=== PATIENT | female | born 1995 | race Caucasian/White ===

== ENCOUNTER 2016-09-13 18:23 | Emergency (ER) | payer MEDICAID ==
--- NOTE | 2016-09-13 20:02 | ERNOTE ---
ER Female HPI Date of Service: 09/13/16 Stated Complaint: 14WEEKS PREG, BLEEDING Presenting Symptoms: vaginal bleeding Time Seen by Provider: 09/13/16 19:37 Source: patient, family, RN notes reviewed Exam Limitations: no limitations Immunizations: IMMUNIZATION HX Immunizations Up to Date Yes History of Influenza Vaccine No Hx Pneumococcal Vaccination No Allergies/Adverse Reactions: Allergies No Known Allergies Allergy (Verified 09/13/16 18:35) Pain Score #1 Pain Score: 0 - History of Present Illness Narrative: 21 y/o female ambulatory to the ED with her family for an episode of vaginal bleeding that occurred just prior to arrival. She reports having spotting that soaked through her underwear and pants. She then put on a pad that has a scant amount of dark brown bleeding present. She is 14 weeks . She denies any pain. Her blood type is A positive. This is her first . Date (Duration): 09/13/16 Time (Timing): 18:00 Activities at Onset: Present: none Associated Symptoms: Present: nausea. Absent: fever/chills, vomiting, abdominal pain, dysuria, urinary frequency, low back pain Review of Systems - Review of Systems Constitutional: Absent: recent illness, fever, chills, malaise EYE: Present: no symptoms reported ENT: Present: no symptoms reported Respiratory: Present: no symptoms reported Cardiology: Present: no symptoms reported Gastrointestinal/Abdominal: Present: nausea. Absent: vomiting, diarrhea, constipation, abdominal pain Genitourinary: Absent: frequency, pain, dysuria Musculoskeletal: Absent: back pain, muscle pain Skin: Present: no symptoms reported Neurological: Absent: headache, dizziness/light-headedness Endocrine: Present: no symptoms reported Hematologic/Lymphatic: Absent: easy bruising, easy bleeding Psych: Present: no symptoms reported - Patient's Past Medical History Patient History - Medical: Obesity Patient History - Cardiac/Respiratory: No pertinent hx Patient History - Cancer: No Hx of Cancer Patient History - Surgical Procedures: No surgical history Patient History - Other: None LMP (females 10-50): LMP (Calendar): 06/19/16 - Social History Living Situations: home Psych History: No pertinent hx Does anyone smoke in the home?: No Smoking Status: Never smoker Have you smoked in the past 12 months: No Do you dip or chew tobacco: No Alcohol Use: none Drug Use: none - Immunizations Immunizations Up to Date: Yes Hx Pneumococcal Vaccination: No History of Influenza Vaccine: No Physical Exam - Physical Exam General Appearance: Present: wd/wn, alert, anxious, obese Neck: Present: normal inspection, nontender, supple Respiratory: Present: no respiratory distress, normal breath sounds, no accessory muscle use, lungs clear Cardiovascular/Chest: Present: regular rate, rhythm, no murmur, normal peripheral pulses Gastrointestinal/Abdominal: Present: normal bowel sounds, nontender, nondistended, soft, other - obese Back Exam: Present: normal inspection, no CVA tenderness Neurological Exam: Present: alert, oriented, normal mood/affect, no motor/ sensory deficits Skin Exam: Present: normal color, warm/dry Pelvic Exam: Present: other - cervical os closed, mucinous discharge streaked with blood present but no active bleeding ED Progress - Vital Signs Patient's Vital Signs:: I have reviewed the patient's vital signs. Vital Signs: Vital Signs 09/13/16 09/13/16 18:31 18:53 Temperature 36.9 C 36.9 C Pulse Rate 80 80 Respiratory 16 16 Rate Blood Pressure 123/76 123/76 O2 Sat by Pulse 99 Oximetry - Progress/Reassessment Chief Complaint: Genitourinary Problem Progress:: Unchanged Plan - Plan Plan: Patient has appt with Dr. Luna tomorrow, to see him as scheduled or return for worsening symptoms as discussed Departure Clinical Impression: Second trimester bleeding - Departure Disposition: Home Follow Up Needed Condition: Stable Instructions: Vaginal Bleeding During , Second Trimester Additional Instructions: Return for bleeding that saturates a pad in an hour or if you pass clots that are lemon sized or larger Nothing in the vagina See Dr. Luna tomorrow as scheduled Referrals: Jacy Luna MD [Staff Physician] -
[2016-09-13 20:12] VITALS: BP 132/80
== END 2016-09-13 20:11 | disposition home or self-care (01) ==
LOC: ER 18:23
DX: N93.8 Other specified abnormal uterine and vaginal bleeding (principal); Z33.1 Pregnant state, incidental; Z3A.14 14 weeks gestation of pregnancy

== ENCOUNTER 2016-10-26 15:41 | Emergency (ER) | payer MEDICAID ==
[2016-10-26 15:54] VITALS: BP 134/84
--- NOTE | 2016-10-26 15:59 | ERNOTE ---
Medical Problem HPI - General Time Seen by Provider: 10/26/16 15:44 Source: patient Exam Limitations: no limitations - Immun/Allergies/Home Medications Immunizations: IMMUNIZATION HX Immunizations Up to Date Yes History of Influenza Vaccine No Hx Pneumococcal Vaccination No Allergies/Adverse Reactions: Allergies azithromycin [From Zithromax Z-Shiva] Allergy (Verified 10/26/16 15:55) Itching Home Medications: HOME MEDICATIONS Vit No.78/Iron/FA [Prenatabs FA Tablet] 1 each PO DAILY 10/26/16 [Last Taken Unknown] - History of Present History Narrative: Patient was working as a when she suddenly saw flashes and the vision went blurry in her right eye. Her vision has improved some but is still blurry. She denies any other symptoms, is currently 20 weeks Date (Duration): 10/26/16 Time (Timing): 15:35 Review of Systems - Review of Systems Constitutional: Absent: fever, chills EYE: Present: see HPI, blurred vision, vision changes. Absent: eye pain, tearing ENT: Absent: ear pain, nose congestion, sore throat Respiratory: Absent: shortness of breath, cough Cardiology: Absent: chest pain Gastrointestinal/Abdominal: Present: other - feels the baby move, no bleeding, no contractions. Absent: nausea, vomiting, abdominal pain Genitourinary: Present: no symptoms reported, frequency - due to Musculoskeletal: Present: no symptoms reported Neurological: Absent: headache, dizziness/light-headedness, weakness, numbness - Patient's Past Medical History Patient History - Medical: Obesity Patient History - Cardiac/Respiratory: No pertinent hx Patient History - Cancer: No Hx of Cancer Patient History - Surgical Procedures: No surgical history Patient History - Other: None LMP (Calendar): 06/19/16 - patient 20 1/ weeks by date - Social History Living Situations: home Psych History: No pertinent hx Does anyone smoke in the home?: No Alcohol Use: none Drug Use: none - Immunizations Immunizations Up to Date: Yes Hx Pneumococcal Vaccination: No History of Influenza Vaccine: No Physical Exam - Physical Exam General Appearance: Present: wd/wn, alert, no apparent distress Eye Exam: Normal inspection: bilateral, PERRL: bilateral, EOMI: bilateral - patient reports double vision with looking to the right Ears, Nose, Throat: Present: normal ENT inspection Respiratory: Present: no respiratory distress, normal breath sounds, no accessory muscle use, lungs clear Cardiovascular/Chest: Present: no murmur Gastrointestinal/Abdominal: Present: normal bowel sounds, nontender, nondistended, soft Neurological Exam: Present: alert, oriented, normal mood/affect, no motor/ sensory deficits, top lift compressor II-XII nml as tested - except for double vision to the right, normal cerebellar test. Absent: facial droop, motor weakness Skin Exam: Present: normal color, warm/dry ED Progress - Vital Signs Patient's Vital Signs:: I have reviewed the patient's vital signs. - Progress/Reassessment Progress Note-Subjective: 10/26/16 16:[address] Paris's office, okay to send patient over now Departure - Departure Clinical Impression: Change in vision Disposition: Home self-care Condition: Good Instructions: Blurred Vision Additional Instructions: go to Dr Cadena office now Referrals: Deven Cadena MD [Staff Physician] -
[2016-10-26] MEDS ORDERED: METOCLOPRAMIDE HCL 5 MG/ML VIAL IV ONE (17:36)
[2016-10-26] MEDS ORDERED: diphenhydrAMINE HCL 50 MG/ML VIAL IV ONE (17:36)
[2016-10-26] MEDS ORDERED: diphenhydrAMINE HCL 50 MG/ML VIAL ONE (17:53)
[2016-10-26] MEDS ORDERED: METOCLOPRAMIDE HCL 5 MG/ML VIAL ONE (17:53)
== END 2016-10-26 18:48 | disposition home or self-care (01) ==
LOC: ER 15:41
DX: O26.892 Other specified pregnancy related conditions, second trimester (principal); R51 Headache; H53.8 Other visual disturbances; Z3A.20 20 weeks gestation of pregnancy

== ENCOUNTER 2016-12-21 13:41 | Emergency (ER) | payer MEDICAID ==
[2016-12-21] MEDS ORDERED: NORMAL SALINE 1,000 ML IV ONE (14:45)
[2016-12-21] MEDS ORDERED: diphenhydrAMINE HCL 50 MG/ML VIAL IV ONE (14:45)
[2016-12-21] MEDS ORDERED: predniSONE 20 MG TABLET PO ONE (14:46)
[2016-12-21] MEDS ORDERED: METOCLOPRAMIDE HCL 5 MG/ML VIAL IV ONE (14:50)
[2016-12-21] MEDS ORDERED: diphenhydrAMINE HCL 50 MG/ML VIAL ONE (14:54)
[2016-12-21] MEDS ORDERED: METOCLOPRAMIDE HCL 5 MG/ML VIAL ONE (14:54)
[2016-12-21 15:01] LABS: Hematocrit 34.5 % (37.0-47.0); Hemoglobin 12.2 gm/dL (12.5-16.0); Mean Cell Volume 85.4 fl (78-100); Mean Corpuscular Hemoglobin 30.2 pg (27-31); Mean Corpuscular Hgb Conc 35.4 g/dl (32-36); Mean Platelet Volume 10.7 fl (6.0-9.5); Neutrophil # 7.1 K/mm3 (1.3-6.0); Neutrophil % 73.3 % (42-75.0); Platelet Count 205 K/mm3 (150-450); Red Blood Count 4.04 M/mm3 (4.2-5.4); Red Cell Distribution Width 12.4 % (11.5-14.0); White Blood Count 9.7 K/mm3 (4.0-10.5)
[2016-12-21 15:14] LABS: Albumin * 2.9 gm/dl (3.4-5.0); BUN/Creatinine Ratio 10.2 (9.0-21.6); Bilirubin, Total 0.3 mg/dL (0.0-1.1); Ca. Corrected For Albumin 9.6 mg/dL (8.4-10.2); Potassium 4.2 mmol/L (3.4-4.6); Total Protein 6.8 gm/dL (6.2-8.2)
[2016-12-21 15:17] LABS: Anion Gap 17.8 mmol/L (6.8-13.8); Carbon Dioxide 21.4 mmol/L (24-32.6)
[2016-12-21 15:38] LABS: Urine Bilirubin Negative (NEGATIVE); Urine Blood Negative /ul (NEGATIVE); Urine Ketone Negative (NEGATIVE); Urine Nitrite Negative (NEGATIVE); Urine Protein Negative (NEGATIVE); Urine Specific Gravity 1.015 SP.GR. (1.005-1.010); Urine Urobilinogen Normal (NORMAL); Urine pH 7.5 pH (5.0-7.0)
[2016-12-21 15:49] LABS: Urine Appearance Slightly Cloudy; Urine Bacteria 3+; Urine Color Yellow; Urine RBC None Seen /hpf (0-5); Urine WBC 0-5 /hpf (0-5)
[2016-12-21 17:28] VITALS: BP 127/74
--- NOTE | 2016-12-21 18:03 | ERNOTE ---
Integumentary HPI - Narrative Date of Service: 12/21/16 - General Presenting Symptoms: other - vomiting, abdominal cramps, itching, rash Time Seen by Provider: 12/21/16 14:10 Source: patient Exam Limitations: no limitations - Immun/Allergies/Home Medications Immunizations: IMMUNIZATION HX Immunizations Up to Date Yes History of Influenza Vaccine No Hx Pneumococcal Vaccination No Allergies/Adverse Reactions: Allergies Allergy/AdvReac Type Severity Reaction Status Date / Time azithromycin Allergy Itching Verified 12/21/16 13:51 [From Zithromax Z-Shiva] Home Medications: HOME MEDICATIONS Vit No.78/Iron/FA [Prenatabs FA Tablet] 1 each PO DAILY 10/26/16 [Last Taken Unknown] Cefuroxime Axetil [Ceftin] 250 mg PO Q12H #20 tab 12/21/16 [Last Taken Unknown] EPINEPHrine [Epipen] 0.3 mg IJ ONCE #1 auto.injct 12/21/16 [Last Taken Unknown] Metoclopramide HCl [Reglan] 10 mg PO QID PRN #12 tab 12/21/16 [Last Taken Unknown] diphenhydrAMINE HCL [Benadryl] 25 mg PO Q6H PRN #30 cap 12/21/16 [Last Taken Unknown] - History of Present Illness Narrative: Patient presents for evaluation of low abdominal cramping, vomiting and pruritic rash. She relates that last night she developed low abdominal cramps, vomited 4-5 times. She also last night developed itching rash on face, back and arms after vomiting. no fever or [place]. No vaginal bleeding. No diarrhea. She is 28 weeks . She called OB and was directed to the ED. No trouble breathing or swallowing. No new exposures. Quality: Reports: itching Exposure: Reports: no cause identified Modifying Factors - (Improves): Denies: antihistamine Modifying Factors - (Worsens): Reports: nothing Associated Symptoms: Denies: blisters, rash, petechiae, change in skin texture, sore throat Prior Treatment: Denies: recently seen Review of Systems - Review of Systems Constitutional: Absent: fever ENT: Absent: throat swelling Respiratory: Absent: shortness of breath Cardiology: Absent: chest pain Gastrointestinal/Abdominal: Present: abdominal pain Genitourinary: Absent: dysuria Skin: Present: See HPI Neurological: Absent: weakness - Patient's Past Medical History Patient History - Medical: Obesity Patient History - Cardiac/Respiratory: No pertinent hx Patient History - Cancer: No Hx of Cancer Patient History - Surgical Procedures: No surgical history Patient History - Other: None LMP (Calendar): 06/19/16 - patient 20 1/ weeks by date - Social History Living Situations: home Psych History: No pertinent hx Does anyone smoke in the home?: No Smoking Status: Former smoker Alcohol Use: none Drug Use: none - Immunizations Immunizations Up to Date: Yes Hx Pneumococcal Vaccination: No History of Influenza Vaccine: No Physical Exam - Physical Exam General Appearance: Present: alert, no apparent distress Eye Exam: Normal inspection: bilateral, PERRL: bilateral Ears, Nose, Throat: Present: normal ENT inspection, other - There is no swelling of the lips, tongue or posterior oropharyngeal structures.. Absent: pharyngeal erythema, pharyngeal swelling, tonsillar swelling, dry mucous membranes Neck: Present: normal inspection, supple Respiratory: Present: no respiratory distress, normal breath sounds, no accessory muscle use, lungs clear Cardiovascular/Chest: Present: regular rate, rhythm, normal peripheral pulses Gastrointestinal/Abdominal: Present: normal bowel sounds, soft, other - Mild suprapubic low abdominal tenderness. no peritoneal signs. no guarding or rebound. Back Exam: Absent: CVA tenderness (R), CVA tenderness (L) Extremity Exam: Present: normal inspection. Absent: calf tenderness Neurological Exam: Present: alert, normal mood/affect, no motor/sensory deficits Skin Exam: Present: other - there are some small scattered urticarial appearing areas on the face and a few on the back. Scattered urticarial areas noted. no SJS, TEN or EM. no petechiae. ED Progress - Results and Orders Patient's Lab Results:: I have reviewed the patient's lab results. - Vital Signs Patient's Vital Signs:: I have reviewed the patient's vital signs. Vital Signs: Vital Signs 12/21/16 12/21/16 12/21/16 13:47 14:18 14:43 Temperature 36.7 C 36.5 C 36.6 C Pulse Rate 96 98 98 Respiratory 12 20 18 Rate Blood Pressure 130/81 134/93 142/80 O2 Sat by Pulse 98 96 98 Oximetry 12/21/16 12/21/16 12/21/16 14:48 15:11 15:43 Temperature 36.6 C 36.6 C 36.3 C L Pulse Rate 98 91 84 Respiratory 18 18 15 Rate Blood Pressure 142/80 129/93 O2 Sat by Pulse 98 98 97 Oximetry 12/21/16 12/21/16 12/21/16 16:48 17:04 17:18 Temperature 36.4 C L 36.3 C L Pulse Rate 88 80 81 Respiratory 16 18 18 Rate Blood Pressure 103/54 O2 Sat by Pulse 99 100 99 Oximetry 12/21/16 17:27 Temperature 36.5 C Pulse Rate 96 Respiratory 15 Rate Blood Pressure 127/74 O2 Sat by Pulse 97 Oximetry - Progress/Reassessment Chief Complaint: Rash Progress Note-Subjective: 12/21/16 17:58 I initially felt the patient should be sent to OB. This was D/W Dr Luna and he requested the patient stay in the ED. He recommended only one dose of steroid but was OK with benadryl. Her itching resolved after Benadryl. She had no further vom iting and her abdominal cramps resolved. Her abdomen was non- tender. She was seen by OB and cleared from an OB standpoint. She has bactiuria and esterase so I will cover with ABx pending culture. She is wishing to go home. No suggestion of life threat at this point. I discussed warning signs and reasons to return as well as the need for close f/u. Departure Clinical Impression: Vomiting, Abdominal cramps, Asymptomatic bacteriuria, Chronic pruritic rash in adult - Departure Disposition: Home self-care Condition: Stable Instructions: Asymptomatic Bacteriuria, Female Additional Instructions: Rest. FLuids. You need to be re-checked by your doctor within 48 hours. Return here for fever, increased rash, trouble breathing or swallowing, abdominal pain, vaginal bleeding or if your condition worsens or changes in any way. I have provided you an EpiPen to take for severe allergic symptoms of lip swelling, trouble breathing or swallowing. If you take this you need to call 911. Referrals: Jacy Luna MD [Primary Care Provider] - Prescriptions: Cefuroxime Axetil [Ceftin] 250 mg PO Q12H #20 tab EPINEPHrine [Epipen] 0.3 mg IJ ONCE #1 auto.injct Metoclopramide HCl [Reglan] 10 mg PO QID PRN #12 tab PRN Reason: Vomiting diphenhydrAMINE HCL [Benadryl] 25 mg PO Q6H PRN #30 cap PRN Reason: Itching
== END 2016-12-21 18:15 | disposition home or self-care (01) ==
LOC: ER 13:41
DX: R11.10 Vomiting, unspecified (principal); R10.9 Unspecified abdominal pain; R82.71 Bacteriuria; L29.9 Pruritus, unspecified; Z33.1 Pregnant state, incidental; Z3A.20 20 weeks gestation of pregnancy

== ENCOUNTER 2016-12-27 03:30 | Emergency (ER) | payer MEDICAID ==
[2016-12-27 03:53] LABS: Urine Bilirubin Negative (NEGATIVE); Urine Blood Negative /ul (NEGATIVE); Urine Ketone Negative (NEGATIVE); Urine Nitrite Negative (NEGATIVE); Urine Protein Negative (NEGATIVE); Urine Urobilinogen Normal (NORMAL); Urine pH 6.5 pH (5.0-7.0)
[2016-12-27 04:05] LABS: Urine Amorphous Sediment Few - 1+ (NONE-FEW); Urine Appearance Clear; Urine Bacteria 1+; Urine Color Yellow; Urine RBC None Seen /hpf (0-5); Urine WBC None Seen /hpf (0-5)
[2016-12-27 04:35] VITALS: BP 120/66
--- NOTE | 2016-12-27 04:36 | ERNOTE ---
ER Female HPI Date of Service: 12/27/16 Stated Complaint: 29 WEEKS, "BURNING CROTCH" Time Seen by Provider: 12/27/16 04:06 Source: patient, family - C/O BURNING IN HER CROTCH. IS 29 WEEKS . SHE WAS SEEN ON 21 DECEMBER AND NOTED TO HAVE BACTERIA IN URINE AND WAS PRESCRIBED CEFTIN FOR UTI. THE URINE CULTURE WAS NEGATIVE FOR ANY GROWTH. Immunizations: IMMUNIZATION HX Immunizations Up to Date Yes History of Influenza Vaccine No Hx Pneumococcal Vaccination No Allergies/Adverse Reactions: Allergies azithromycin [From Zithromax Z-Shiva] Allergy (Verified 12/21/16 13:51) Itching Home Medications: HOME MEDICATIONS Vit No.78/Iron/FA [Prenatabs FA Tablet] 1 each PO DAILY 10/26/16 [Last Taken Unknown] Cefuroxime Axetil [Ceftin] 250 mg PO Q12H #20 tab 12/21/16 [Last Taken Unknown] EPINEPHrine [Epipen] 0.3 mg IJ ONCE #1 auto.injct 12/21/16 [Last Taken Unknown] Metoclopramide HCl [Reglan] 10 mg PO QID PRN #12 tab 12/21/16 [Last Taken Unknown] diphenhydrAMINE HCL [Benadryl] 25 mg PO Q6H PRN #30 cap 12/21/16 [Last Taken Unknown] Miconazole Nitrate [Monistat-7 Vaginal] 1 appl VG HS #7 tube 12/27/16 [Last Taken Unknown] - History of Present Illness Narrative: PT WAS SEEN HERE ON FOR A DIFFERENT PROBLEM BUT NOTED ON HER URINE TO HAVE BACTERIA. SHE WAS STARTED ON CEFTIN AND TOLD TO F/U WITH HER OB DR SINCE SHE IS 29 WEEKS . WHEN SHE SAW DR LUNA ON Tuesday SHE WAS TOLD TO KEEP TAKING THE CEFTIN BUT IT WAS LATER THAT DAY THAT SHE NOTED A WHITISH DISCHARGE AND THE "BURNING FEELING" IN HER CROTCH. THIS HAS WORSENED OVER THE PAST TWO - THREE DAYS. SHE IS STILL TAKING THE ANTIBIOTIC THOUGH WHEN I CHECKED HER URINE CULTURE RESULTS IT SHOWS NO GROWTH. Review of Systems - Review of Systems Constitutional: Present: See HPI EYE: Present: no symptoms reported ENT: Present: no symptoms reported Respiratory: Present: no symptoms reported Cardiology: Present: no symptoms reported Gastrointestinal/Abdominal: Present: no symptoms reported Genitourinary: Present: See HPI Musculoskeletal: Present: no symptoms reported Skin: Present: no symptoms reported Neurological: Present: no symptoms reported Endocrine: Present: no symptoms reported Hematologic/Lymphatic: Present: no symptoms reported Psych: Present: no symptoms reported All Other Systems: All systems neg except as marked - Patient's Past Medical History Patient History - Medical: Obesity Patient History - Cardiac/Respiratory: No pertinent hx Patient History - Cancer: No Hx of Cancer Patient History - Surgical Procedures: No surgical history Patient History - Other: None LMP (Calendar): 06/19/16 - patient 20 07/17 weeks by date - Social History Living Situations: spouse Abuse History: No History of abuse Psych History: No pertinent hx Does anyone smoke in the home?: No Smoking Status: Never smoker Have you smoked in the past 12 months: No Do you dip or chew tobacco: No Alcohol Use: none Drug Use: none - Immunizations Immunizations Up to Date: Yes Hx Pneumococcal Vaccination: No History of Influenza Vaccine: No Physical Exam - Physical Exam General Appearance: Present: wd/wn, alert, no apparent distress Respiratory: Present: no respiratory distress, normal breath sounds, no accessory muscle use, chest nontender, lungs clear Cardiovascular/Chest: Present: regular rate, rhythm, no murmur, normal peripheral pulses Back Exam: Present: no CVA tenderness Neurological Exam: Present: alert, oriented ED Progress - Results and Orders Patient's Lab Results:: I have reviewed the patient's lab results. - Vital Signs Patient's Vital Signs:: I have reviewed the patient's vital signs. Vital Signs: Vital Signs 12/27/16 03:34 Temperature 36.6 C Pulse Rate 84 Respiratory 16 Rate Blood Pressure 126/68 O2 Sat by Pulse 99 Oximetry - Progress/Reassessment Chief Complaint: Genitourinary Problem Departure Clinical Impression: Yeast infection involving the vagina and surrounding area - Departure Disposition: Home Follow Up Needed Condition: Good Instructions: Vaginal Yeast Infection, Adult Additional Instructions: STOP THE CEFTIN YOUR URINE FROM THE DID NOT GROW OUT ANY BACTERIA. Referrals: Jacy Luna MD [Primary Care Provider] - Prescriptions: Miconazole Nitrate [Monistat-7 Vaginal] 1 appl VG HS #7 tube
== END 2016-12-27 04:33 | disposition home or self-care (01) ==
LOC: ER 03:30
DX: O98.812 Other maternal infectious and parasitic diseases complicating pregnancy, second trimester (principal); Z3A.20 20 weeks gestation of pregnancy

== ENCOUNTER 2017-03-01 10:10 | Inpatient (IN) | payer MEDICAID ==
[2017-03-01] MEDS ORDERED: DEXTROSE 5%-LACTATED RINGERS 1,000 ML IV PRN (10:30)
[2017-03-01] MEDS ORDERED: LIDOCAINE HCL 50 ML VIAL PERI PRN (10:30)
[2017-03-01] MEDS ORDERED: RINGER'S SOLUTION,LACTATED 1,000 ML IV ONE (10:30)
[2017-03-01] MEDS ORDERED: MISOPROSTOL 100 MCG TABLET VG PRN (10:30)
[2017-03-01 11:13] LABS: Hematocrit 34.9 % (37.0-47.0); Hemoglobin 12.2 gm/dL (12.5-16.0); Mean Cell Volume 84.7 fl (78-100); Mean Corpuscular Hemoglobin 29.6 pg (27-31); Mean Platelet Volume 12.3 fl (6.0-9.5); Neutrophil # 6.5 K/mm3 (1.3-6.0); Neutrophil % 71.2 % (42-75.0); Platelet Count 166 K/mm3 (150-450); Red Blood Count 4.12 M/mm3 (4.2-5.4); White Blood Count 9.1 K/mm3 (4.0-10.5)
[2017-03-01] MEDS: RINGER'S SOLUTION,LACTATED 1,000 ML IV PRN (11:21)
[2017-03-01 11:28] LABS: Albumin * 2.5 gm/dl (3.4-5.0); Anion Gap 15.9 mmol/L (6.8-13.8); BUN/Creatinine Ratio 17.8 (9.0-21.6); Bilirubin, Total 0.3 mg/dL (0.0-1.1); Ca. Corrected For Albumin 9.5 mg/dL (8.4-10.2); Calcium * 8.6 mg/dL (7.9-10.9); Carbon Dioxide 20.1 mmol/L (24-32.6); Total Protein 6.3 gm/dL (6.2-8.2)
[2017-03-01] MEDS ORDERED: BUTORPHANOL TARTRATE 2 MG/ML VIAL IV ONE (14:27)
--- NOTE | 2017-03-01 18:34 | PN ---
Subjective - Date and Time Seen Date: 03/01/17 Subjective Narrative: labor note patient seen and evaluated. 21 yo, G1 at 38.1 w with mild preeclampsia. GBS negative. cervix dilated to 2 cm, 80% and -3 at admission. had headache at admission, now resolved. complains of right lower back pain at this time. BP labile, a few in the severe range, mostly at mild range and upper normal. face, hand, abdomen and lower extremities appeared swollen at admission. 2+ edema in lower extremities. IV fluid at 50 ml/h due to significant edema. Urine output day shift: 900 ml so far. cytotec placed at 11:18 contractions at time were every minute and now spaced out. received stadol 2 mg iv at 14:27 Cervix: 2 cm, 80% and -2 (17:40) FHR: reassuring 135s with accels. [place]: irregular contractions. DTR: 2+ bilateral knee. Plan: continue monitoring. 2nd of cytotec if tolerated. Pitocin if unable to tolerate cytotec. epidural if in active labor. magnesium sulphate for severe BP or persistent headache not relieved by medication. Jacy Luna MD Objective - Vitals Vitals: Last Vital Signs Temp 36.2 C L 02/07/17 21:50 Pulse Resp BP 143/88 02/07/17 21:50 Pulse Ox - Abnormal Lab Findings Abnormal Lab Findings: Abnormal Lab Results 03/01/17 03/01/17 Range/Units 11:05 11:05 RBC 4.12 L (4.2-5.4) M/mm3 Hgb 12.2 L (12.5-16.0) gm/dL Hct 34.9 L (37.0-47.0) % MPV 12.3 H (6.0-9.5) fl Immature Gran # (Auto) 0.04 H (0.000-0.0310) K/mm3 Neutrophils # 6.5 H (1.3-6.0) K/mm3 Chloride 107 H (97-106) mmol/L Carbon Dioxide 20.1 L (24-32.6) mmol/L Anion Gap 15.9 H (6.8-13.8) mmol/L Est GFR (Non-Af Amer) 185 H D (60-130) mL/min ALT 15 L (19-67) U/L Albumin 2.5 L (3.4-5.0) gm/dl
[2017-03-01] MEDS ORDERED: OXYTOCIN/DEXTROSE 5%-WATER 30 UNITS/500 ML BAG IV ONE (20:41)
[2017-03-01] MEDS ORDERED: ONDANSETRON HCL/PF 2 MG/ML VIAL IV PRN (21:47)
[2017-03-01] MEDS ORDERED: NALOXONE HCL 1 MG/1 ML SYRG IV PRN (21:47)
[2017-03-01] MEDS ORDERED: fentaNYL CITRATE/PF 50 MCG/ML AMPUL IT SCH (22:00)
--- NOTE | 2017-03-01 22:10 | OR ---
Anesthesia Pre Procedure Eval Date of Service: 03/01/17 Pre Procedure Evaluation: Last Vital Signs Temp 36.2 C L 02/07/17 21:50 Pulse Resp BP 143/88 02/07/17 21:50 Pulse Ox Anesthesia Pre Procedure Evaluation Heart Rate: 64 Blood Pressure: 166/102 Temperature: 36.6 Respiratory Rate: 20 SaO2: 98 DATE: 03/01/2017 TIME: 5 INDICATIONS: Active labor, labor pain PAST MEDICAL HISTORY: [place] patient and I labor requesting labor analgesia History of GERD: No History of smoking: No History of sleep apnea: No EXAM: Heart regular; lungs clear ASSESSMENT OF MEDICAL STATUS: Appropriate candidate for labor analgesia PLANNED PROCEDURE: Combination spinal epidural for labor analgesia Home Medications: HOME MEDICATIONS EPINEPHrine [Epipen] 0.3 mg IJ ONCE #1 auto.injct 12/21/16 [Last Taken Unknown] Vits96/Iron Fum/Folic [ S] 1 tab PO DAILY 03/01/17 [Last Taken Unknown]
--- NOTE | 2017-03-01 22:35 | OR ---
Anesthesia Procedure Note - Anesthesia Procedure Note Date of Service: 03/01/17 Narrative: Vital Signs - Last Taken Temp 36.2 C L 02/07/17 21:50 Pulse Resp BP 143/88 02/07/17 21:50 Pulse Ox ANESTHESIA PROCEDURE NOTE Date of Procedure: 03/01/2017 Time of procedure: 2204. Performed by: DOMINIQUE Mathews CRNA, MSN [place] Guide: Samuel Preciado RN. Preprocedure diagnosis: Active labor, labor pain. Post procedure diagnosis: Same. Procedure:Epidural for labor analgesia L3 4. Indications: Labor pain. Findings: See below. Details of the procedure: The patient was placed on the side of the bed in sitting positionand prepped with DuraPrep then draped in a sterile fashion. Lidocaine 1% was infiltrated to the skin and subcutaneous tissues at the level of the L3 4 interspace. An 18-gauge Touhy needle was used to approach the epidural space with loss of resistance technique. Once loss of resistance was achieved a 24-gauge Pencan needle was passed through the epidural needle and CSF was contacted. After CSF returned fentanyl 20 mcg of fentanyl was injected in the spinal needle was removed the epidural catheter was then threaded approximately 4 cm in the epidural needle was removed. The catheter was taped in place and after careful aspiration 3 mL of 1.5% lidocaine with 1-200,000 epinephrine was injected without change in maternal heart rate or sensorium. . EBL: Minimal. Fluids: N/A. Specimen: N/A. Post procedure condition: The patient tolerated the procedure well with good relief. No complications were noted. Thank you for this consultation. Deven To CRNA, DOMINIQUE, MSN
[2017-03-01] MEDS: BUPIVACAINE HCL/0.9 % NACL/PF 250 ML EP PRN (22:57)
[2017-03-02] MEDS ORDERED: LABETALOL HCL 200 MG TABLET PO STA (06:34)
--- NOTE | 2017-03-02 08:57 | PN ---
Subjective - Date and Time Seen Date: 03/02/17 Subjective Narrative: labor note induction day 2 G1, 38 2/7 weeks induced for preeclampsia. BP labile, with several in the severe range 173/107, 170/102. denies headache. labetalol 200 mg po given at 6:30. BP trending down and now some in the normal range 147/91 and 123/70. received epidural around 11 pm last night. complains of legs tingling after epidural, more on the right side. pitocin at 13 mu/min. contractions q4-5 min. Cervix 2/80/-3 Ortiz bulb balloon placed into the cervix to aid with pitocin, but slided out after inflating with saline. Cervix now 4 cm, 80% and -2. Patient appeared having SROM, with pooling fluid on cervical exam, no bulging bag, just the scalp felt. FHR: reassuring, 125s with accels. Plan: continue pitocin as tolerated. will notify anesthesia for complain of legs tingling. Jacy Luna MD Objective - Vitals Vitals: Last Vital Signs Temp 36.2 C L 03/01/17 22:40 Pulse 84 03/02/17 06:42 Resp 16 03/01/17 22:40 BP 172/97 03/02/17 06:42 Pulse Ox 98 03/01/17 22:40 - Abnormal Lab Findings Abnormal Lab Findings: Abnormal Lab Results 03/01/17 03/01/17 Range/Units 11:05 11:05 RBC 4.12 L (4.2-5.4) M/mm3 Hgb 12.2 L (12.5-16.0) gm/dL Hct 34.9 L (37.0-47.0) % MPV 12.3 H (6.0-9.5) fl Immature Gran # (Auto) 0.04 H (0.000-0.0310) K/mm3 Neutrophils # 6.5 H (1.3-6.0) K/mm3 Chloride 107 H (97-106) mmol/L Carbon Dioxide 20.1 L (24-32.6) mmol/L Anion Gap 15.9 H (6.8-13.8) mmol/L Est GFR (Non-Af Amer) 185 H D (60-130) mL/min ALT 15 L (19-67) U/L Albumin 2.5 L (3.4-5.0) gm/dl [facility] Physician Documentation - Urinary Catheter Management Urethral (Ortiz) Date of Insertion: 03/01/17 Time of Insertion: 23:00
[2017-03-02] MEDS: RINGER'S SOLUTION,LACTATED 1,000 ML IV PRN (15:22)
[2017-03-02] MEDS ORDERED: LABETALOL HCL 200 MG TABLET PO ONE (17:30)
[2017-03-02] MEDS: BUPIVACAINE HCL/0.9 % NACL/PF 250 ML EP PRN (18:10)
[2017-03-02] MEDS ORDERED: SENNOSIDES 8.6 MG TABLET PO PRN (22:47)
[2017-03-02] MEDS ORDERED: HYDROCORTISONE 30 APPL TUBE TP PRN (22:47)
[2017-03-02] MEDS ORDERED: BISACODYL 10 MG SUPP.RECT RC PRN (22:47)
[2017-03-02] MEDS ORDERED: GLYCERIN/WITCH HAZEL LEAF 40 APPL BOX TP PRN (22:47)
[2017-03-02] MEDS ORDERED: OXYTOCIN/DEXTROSE 5%-WATER 30 UNITS/500 ML BAG IV ONE (22:47)
[2017-03-02] MEDS ORDERED: BENZOCAINE/MENTHOL 81 SPRAY CAN TP PRN (22:47)
[2017-03-02] MEDS ORDERED: oxyCODONE HCL/ACETAMINOPHEN 1 TAB TABLET PO PRN (22:47)
[2017-03-02] MEDS ORDERED: ceFAZolin SODIUM 3 GM in DEXTROSE 5 % IN WATER 100 ML IV ONE ×2 (23:02)
--- NOTE | 2017-03-02 23:02 | OR ---
Operative Report - Dictated Report Narrative: Spontaneous Vaginal Delivery Note: 21 yo, CF, G1 at 38.2 week, admitted with mild preeclampsia and induced with cytotec x 1 dose and pitocin. GBS was negative. Received epidural in labor. AROM at 6 cm with clear fluid. IUPC and ISE placed. Progressed to complete and pushed for about 1.5 hours. Head delivered in LULA over the perineum. No nuchal cord noted. The anterior shoulder delivered, followed by the posterior shoulder and the rest of the baby without difficulty. Baby was not crying at perineum. Cord was clamped, and cut by father of baby. Mouth and nose were bulb- suctioned. Baby placed on maternal abdomen for drying and then transferred to warmer for care by the nursing. Cord blood was obtained. Placenta delivered by manual extraction after cord partially torn and was intact with 3 vessel cord. Pitocin drip started after placenta delivered. Exam of the perineum, vaginal and cervix revealed no perineum laceration. Fundus was massaged and firm. Bleeding was minimal. Mother and baby tolerated the delivery well. EBL 250 ml. Infant: male, 3589 grams, 7 lbs and 14.6 oz. 7/9. Time of delivery: 22: 07. Time of placenta delivery: 22:33. Jacy Luna MD History for Definition: * The number of deliveries resulting in a live the patient experienced prior to current hospitalization * The previous delivery of live twins or any live multiple gestation is considered one live event. *If primagravida or nulliparous is documented select zero for the number of previous live births. Live Events: 0
[2017-03-03] MEDS: IBUPROFEN 800 MG TABLET PO PRN ×3 (00:07→17:17)
[2017-03-03 09:12] LABS: Hemoglobin 11.1 gm/dL (12.5-16.0); Mean Cell Volume 85.3 fl (78-100); Mean Corpuscular Hemoglobin 29.6 pg (27-31); Mean Corpuscular Hgb Conc 34.7 g/dl (32-36); Mean Platelet Volume 12.4 fl (6.0-9.5); Neutrophil # 15.7 K/mm3 (1.3-6.0); Neutrophil % 80.2 % (42-75.0); Platelet Count 166 K/mm3 (150-450); Red Blood Count 3.75 M/mm3 (4.2-5.4); Red Cell Distribution Width 13.2 % (11.5-14.0); White Blood Count 19.5 K/mm3 (4.0-10.5)
[2017-03-03 09:25] LABS: Albumin * 2.4 gm/dl (3.4-5.0); Anion Gap 16.2 mmol/L (6.8-13.8); BUN/Creatinine Ratio 12.7 (9.0-21.6); Bilirubin, Total 0.3 mg/dL (0.0-1.1); Ca. Corrected For Albumin 9.5 mg/dL (8.4-10.2); Calcium * 8.5 mg/dL (7.9-10.9); Carbon Dioxide 18.7 mmol/L (24-32.6); Potassium 3.9 mmol/L (3.4-4.6); Total Protein 5.7 gm/dL (6.2-8.2)
[2017-03-03] MEDS: DOCUSATE SODIUM 100 MG CAPSULE PO SCH ×2 (10:04→20:52)
[2017-03-03] MEDS: oxyCODONE HCL/ACETAMINOPHEN 1 TAB TABLET PO PRN ×3 (11:42→23:02)
[2017-03-03] MEDS ORDERED: MAGNESIUM SULFATE IN WATER 50 ML, MAGNESIUM SULFATE IN WATER 50 ML IV ONE ×2 (15:22)
--- NOTE | 2017-03-03 15:22 | PN ---
Subjective - Date and Time Seen Date: 03/03/17 Subjective Narrative: day 1, s/p and manual removal of placenta. Afebrile. BP labile, mostly in the mild range, but some severe range. denies headache, blurry vision or RUQ pain. swelling in legs improved. ambulating well. breast feeding. normal lochia. Objective - Vitals Vitals: Last Vital Signs Temp 36.5 C 03/03/17 14:24 Pulse 77 03/03/17 14:24 Resp 18 03/03/17 14:24 BP 165/100 03/03/17 14:24 Pulse Ox 98 03/03/17 14:24 - Abnormal Lab Findings Abnormal Lab Findings: Abnormal Lab Results 03/03/17 03/03/17 Range/Units 09:00 09:00 WBC 19.5 H D (4.0-10.5) K/mm3 RBC 3.75 L (4.2-5.4) M/mm3 Hgb 11.1 L (12.5-16.0) gm/dL Hct 32.0 L (37.0-47.0) % MPV 12.4 H (6.0-9.5) fl Immature Gran % (Auto) 0.50 H (0.001-0.429) % Immature Gran # (Auto) 0.09 H (0.000-0.0310) K/mm3 Neutrophils % 80.2 H (42-75.0) % Lymphocytes % 10.9 L (20-51) % Neutrophils # 15.7 H (1.3-6.0) K/mm3 Monocytes # 1.6 H (0.0-1.0) k/mm3 Chloride 108 H (97-106) mmol/L Carbon Dioxide 18.7 L (24-32.6) mmol/L Anion Gap 16.2 H (6.8-13.8) mmol/L Random Glucose 120 H D (70-110) mg/dL ALT 14 L (19-67) U/L Total Protein 5.7 L (6.2-8.2) gm/dL Albumin 2.4 L (3.4-5.0) gm/dl - Exam Constitutional: Present: Alert, Oriented x3, Cooperative Respiratory: Present: no respiratory distress Cardiovascular/Chest: Present: normal peripheral pulses Abdomen: Present: soft, nontender, nondistended, other - fundus firm at umbilicus. No uterine tenderness. Extremity: Present: normal range of motion, no calf tenderness, lower extremity edema - 1+ bilaterally., pedal edema Skin Exam: Present: normal color, warm/dry, no cyanosis Neurologic: Present: other - DTR 2+ bilaterally. Eye contact: Present: cooperative, good eye contact, normal speech Cauti Physician Documentation - Urinary Catheter Management Urethral (Ortiz) Date of Insertion: 03/02/17 Time of Insertion: 10:45 Date of Removal: 03/02/17 Time of Removal: 18:20 Assessment/Plan Plan Narrative: A: day 1, s/p , induced for mild preeclampsia and now severe. Plan: will start magnesium sulphate for severe prophylaxis. will watch the Is and Os and magnesium toxicity. seizure precautions. Jacy Luna MD
[2017-03-03] MEDS ORDERED: MAGNESIUM SULFATE IN WATER 1,000 ML IV SCH (15:30)
[2017-03-04] MEDS: IBUPROFEN 800 MG TABLET PO PRN (02:22)
[2017-03-04] MEDS: oxyCODONE HCL/ACETAMINOPHEN 1 TAB TABLET PO PRN ×2 (02:22→08:04)
[2017-03-04] MEDS: DOCUSATE SODIUM 100 MG CAPSULE PO SCH (08:04)
--- NOTE | 2017-03-04 09:43 | PN ---
Subjective - Date and Time Seen Date: 03/04/17 Subjective Narrative: day 2, s/p with preeclampsia. denies headache, blurry vision, RUQ pain. BP has been labile, some in severe range and mostly mild. declined magnesium sulphate yesterday. states edema has been improving. breast feeding. normal lochia. ambulation well. discussed possible discharge home if BP mild and without symptoms. Objective - Vitals Vitals: Last Vital Signs Temp 36.8 C 03/04/17 07:10 Pulse 77 03/04/17 07:10 Resp 20 03/04/17 07:10 BP 148/92 03/04/17 07:10 Pulse Ox 100 03/04/17 07:10 - Exam Constitutional: Present: Alert, Oriented x3, Cooperative Respiratory: Present: no respiratory distress Cardiovascular/Chest: Present: normal peripheral pulses Abdomen: Present: soft, nontender, nondistended, other - fundus firm, non- tender and 1 finger below umbilicus. Extremity: Present: normal range of motion, no calf tenderness, lower extremity edema - trace, pedal edema - trace Skin Exam: Present: normal color, warm/dry, no cyanosis Neurologic: Present: other - DTR: normal Eye contact: Present: cooperative, good eye contact, normal speech Cauti Physician Documentation - Urinary Catheter Management Urethral (Ortiz) Date of Insertion: 03/02/17 Time of Insertion: 10:45 Date of Removal: 03/02/17 Time of Removal: 18:20 Assessment/Plan Plan Narrative: A: day 2, s/p with preeclampsia and asymptomatic. Plan: preeclampsia was mild at admission and became severe due to elevated BP in the severe range in labor and . BP has been very labile either due to pain or anxiety. BP was severely elevated yesterday, but patient declined magnesium sulphate. BP currently in the mild range. No headache or blurry vision. OK to discharge if stable and mild BP only. Counseled possible magnesium sulphate for severe BP or neurologic symptoms. Precautions given. Patient will check BP at home and call if over 160/100. Jacy Luna MD
[2017-03-04 11:39] VITALS: BP 162/85
== END 2017-03-04 16:00 | disposition home or self-care (01) | DRG 775 ==
LOC: OB 10:10 → MS 03-03 20:38
PROVIDERS: ADMIT Obstetrics & Gynecology; ATTEND Obstetrics & Gynecology
PROC: 10E0XZZ Delivery of Products of Conception, External Approach (ICD-10-PCS; principal; 2017-03-02)
PROC: 10907ZC Drainage of Amniotic Fluid, Therapeutic from Products of Conception, Via Natural or Artificial Opening (ICD-10-PCS; 2017-03-02)
PROC: 4A1H7CZ Monitoring of Products of Conception, Cardiac Rate, Via Natural or Artificial Opening (ICD-10-PCS; 2017-03-02)
PROC: 00HU33Z Insertion of Infusion Device into Spinal Canal, Percutaneous Approach (ICD-10-PCS; 2017-03-02)
DX: O14.14 Severe pre-eclampsia complicating childbirth (principal); Z68.41 Body mass index [BMI] 40.0-44.9, adult; O99.214 Obesity complicating childbirth; E66.01 Morbid (severe) obesity due to excess calories; Z3A.38 38 weeks gestation of pregnancy; Z37.0 Single live birth

== ENCOUNTER 2017-03-24 03:38 | Emergency (ER) | payer MEDICAID ==
[2017-03-24 03:49] VITALS: BP 146/99
--- NOTE | 2017-03-24 05:36 | ERNOTE ---
Abdominal HPI - General Chief Complaint: Abdominal Pain Time Seen by Provider: 03/24/17 05:21 - Immun/Allergies/Home Medications Immunizatons: IMMUNIZATION HX Immunizations Up to Date Yes History of Influenza Vaccine Yes Hx Pneumococcal Vaccination No Allergies/Adverse Reactions: Allergies azithromycin [From Zithromax Z-Shiva] Allergy (Verified 03/24/17 03:49) Itching Home Medications: HOME MEDICATIONS EPINEPHrine [Epipen] 0.3 mg IJ ONCE #1 auto.injct 12/21/16 [Last Taken Unknown] Vits96/Iron Fum/Folic [ S] 1 tab PO DAILY 03/01/17 [Last Taken Unknown] Ibuprofen [Motrin] 800 mg PO Q6H PRN tablet 03/04/17 [Last Taken Unknown] - History of Present Illness Narrative: Pt was awakened by RUQ abd pain in the middle of the night. She had vaginal delivery 3 weeks ago Timing: constant, getting worse Quality: moderate Activities at Onset: sleep - Last night Modifying Factors - (Improves): Present: analgesics - ibuprofen Associated Symptoms: Present: nausea, vomiting Review of Systems - Review of Systems Constitutional: Absent: recent illness EYE: Present: no symptoms reported ENT: Present: no symptoms reported Respiratory: Absent: shortness of breath Cardiology: Absent: chest pain Gastrointestinal/Abdominal: Present: nausea, constipation. Absent: vomiting Genitourinary: Present: no symptoms reported Musculoskeletal: Present: back pain Skin: Present: no symptoms reported Neurological: Present: no symptoms reported Endocrine: Present: no symptoms reported Hematologic/Lymphatic: Present: no symptoms reported Psych: Present: no symptoms reported - Patient's Past Medical History Patient History - Medical: No pertinent hx, Obesity Patient History - Cardiac/Respiratory: No pertinent hx Patient History - Cancer: No Hx of Cancer Patient History - Surgical Procedures: No surgical history Patient History - Other: None LMP (Calendar): 06/19/16 - patient 20 07/17 weeks by date - Social History Living Situations: home Abuse History: No History of abuse Psych History: Hx of Anxiety Does anyone smoke in the home?: No Smoking Status: Former smoker Alcohol Use: none Drug Use: none - Immunizations Immunizations Up to Date: Yes Hx Pneumococcal Vaccination: No History of Influenza Vaccine: Yes Physical Exam - Physical Exam General Appearance: Present: wd/wn, alert, no apparent distress Head Exam: Present: normal inspection, no evidence of injury Eye Exam: Normal inspection: bilateral Ears, Nose, Throat: Present: normal ENT inspection Neck: Present: normal inspection, nontender Respiratory: Present: no respiratory distress, no accessory muscle use, lungs clear Cardiovascular/Chest: Present: regular rate, rhythm, no murmur, normal peripheral pulses Gastrointestinal/Abdominal: Present: tenderness, abnormal bowel sounds - hyperactive Back Exam: Present: normal inspection, no CVA tenderness Extremity Exam: Present: normal inspection, normal range of motion Neurological Exam: Present: alert, oriented, normal mood/affect Skin Exam: Present: normal color, warm/dry Lymphatic Exam: Present: no adenopathy ED Progress - Results and Orders Patient's Lab Results:: I have reviewed the patient's lab results. Results and Orders: Laboratory Tests 03/24/17 03/24/17 03/24/17 05:50 05:50 05:56 WBC 7.8 Hgb 11.8 L Hct 35.1 L Plt Count 272 Sodium 141 Potassium 4.4 Chloride 106 Carbon Dioxide 26.3 Anion Gap 13.1 BUN 10 Creatinine 0.75 Random Glucose 95 Calcium 8.7 Total Bilirubin 0.2 AST 18 ALT 23 Alkaline Phosphatase 102 Total Protein 6.9 Albumin 3.4 Amylase 31 Lipase 107 Urine Color Yellow Urine Appearance Cloudy Urine pH 5.5 Ur Specific [place] 1.025 Urine Protein Negative Urine Glucose (UA) Negative Urine Ketones Negative Urine Blood 25 H Urine Nitrate Negative Urine Bilirubin Negative Urine Urobilinogen Normal Ur Leukocyte Esterase 100 H Urine RBC 5-10 H Urine WBC 10-25 H Ur Epithelial Cells 5-10 H Urine Bacteria 4+ H Urine Culture Comments Culture to follow - Vital Signs Patient's Vital Signs:: I have reviewed the patient's vital signs. Vital Signs: Vital Signs 03/24/17 03:45 Temperature 36.4 C L Pulse Rate 79 Respiratory 18 Rate Blood Pressure 146/99 O2 Sat by Pulse 98 Oximetry - X-Ray X-Ray #1 X-Ray: abdomen Interpretation: Interp. by me X-ray Comments: moderate stool retention right side and LLQ. - Progress/Reassessment Chief Complaint: Abdominal Pain Departure - Departure Clinical Impression: Constipation Qualifiers: Constipation type: slow transit constipation Qualified Code(s): K59.01 - Slow transit constipation Disposition: Home self-care Condition: Good Instructions: Constipation, Adult, [id number] Additional Instructions: Take milk of magnesia as soon as you get home. Begin taking a stool softener to continue to keep your bowels moving
[2017-03-24 06:07] LABS: Hematocrit 35.1 % (37.0-47.0); Hemoglobin 11.8 gm/dL (12.5-16.0); Mean Cell Volume 85.2 fl (78-100); Mean Corpuscular Hemoglobin 28.6 pg (27-31); Mean Corpuscular Hgb Conc 33.6 g/dl (32-36); Mean Platelet Volume 11.4 fl (6.0-9.5); Neutrophil # 4.2 K/mm3 (1.3-6.0); Neutrophil % 53.7 % (42-75.0); Platelet Count 272 K/mm3 (150-450); Red Blood Count 4.12 M/mm3 (4.2-5.4); Red Cell Distribution Width 12.1 % (11.5-14.0); White Blood Count 7.8 K/mm3 (4.0-10.5)
[2017-03-24 06:23] LABS: Albumin * 3.4 gm/dl (3.4-5.0); Anion Gap 13.1 mmol/L (6.8-13.8); BUN/Creatinine Ratio 13.3 (9.0-21.6); Bilirubin, Total 0.2 mg/dL (0.0-1.1); Ca. Corrected For Albumin 8.9 mg/dL (8.4-10.2); Calcium * 8.7 mg/dL (7.9-10.9); Carbon Dioxide 26.3 mmol/L (24-32.6); Potassium 4.4 mmol/L (3.4-4.6); Total Protein 6.9 gm/dL (6.2-8.2)
[2017-03-24 06:27] LABS: Urine Bilirubin Negative (NEGATIVE); Urine Blood 25 /ul (NEGATIVE); Urine Ketone Negative (NEGATIVE); Urine Nitrite Negative (NEGATIVE); Urine Protein Negative (NEGATIVE); Urine Specific Gravity 1.025 SP.GR. (1.005-1.010); Urine Urobilinogen Normal (NORMAL); Urine pH 5.5 pH (5.0-7.0)
[2017-03-24] MEDS ORDERED: MAGNESIUM HYDROXIDE 30 ML UDC PO ONE (07:00)
[2017-03-24] MEDS ORDERED: MAGNESIUM HYDROXIDE 30 ML UDC ONE (07:03)
[2017-03-24 08:30] LABS: Urine Color Yellow
[2017-03-24 08:31] LABS: Urine Appearance Cloudy
[2017-03-24 08:32] LABS: Urine Bacteria 4+
== END 2017-03-24 07:11 | disposition home or self-care (01) ==
LOC: ER 03:38
DX: K59.01 Slow transit constipation (principal); Z87.891 Personal history of nicotine dependence

== ENCOUNTER 2017-04-01 17:56 | Emergency (ER) | payer MEDICAID ==
[2017-04-01 19:46] LABS: Hematocrit 40.1 % (37.0-47.0); Hemoglobin 13.4 gm/dL (12.5-16.0); Mean Cell Volume 83.7 fl (78-100); Mean Corpuscular Hgb Conc 33.4 g/dl (32-36); Mean Platelet Volume 11.2 fl (6.0-9.5); Neutrophil % 54.9 % (42-75.0); Platelet Count 307 K/mm3 (150-450); Red Blood Count 4.79 M/mm3 (4.2-5.4); Red Cell Distribution Width 12.2 % (11.5-14.0); White Blood Count 9.2 K/mm3 (4.0-10.5)
--- NOTE | 2017-04-01 19:50 | ERNOTE ---
Abdominal HPI - Narrative Date of Service: 04/01/17 - General Chief Complaint: Abdominal Pain Time Seen by Provider: 04/01/17 19:38 Source: patient Exam Limitations: no limitations - Immun/Allergies/Home Medications Immunizatons: IMMUNIZATION HX Immunizations Up to Date Yes History of Influenza Vaccine Yes Hx Pneumococcal Vaccination No Allergies/Adverse Reactions: Allergies azithromycin [From Zithromax Z-Shiva] Allergy (Verified 03/24/17 03:49) Itching Home Medications: HOME MEDICATIONS EPINEPHrine [Epipen] 0.3 mg IJ ONCE #1 auto.injct 12/21/16 [Last Taken Unknown] Vits96/Iron Fum/Folic [ S] 1 tab PO DAILY 03/01/17 [Last Taken Unknown] Ibuprofen [Motrin] 800 mg PO Q6H PRN tablet 03/04/17 [Last Taken Unknown] Polyethylene Glycol 3350 [Miralax] 17 gm PO DAILY PRN 10 Days #1 btl 04/01/17 [ Last Taken Unknown] - Pain Score Pain Score #1 Pain Score: 10 Abdominal Pain Onset Location: LUQ Pain Radiation: back - History of Present Illness Narrative: 21yo, F, with LUQ abd pain and mid back pain present for approx 1 month. Pain is intermittently occurring for the past month, but today has been constant. States she was previously started on colace and passed "quite a bit of stool", she did have a some loose stools last week, so discontinued the stool softener. She was seen by her OB, Dr. Luna, today and was started on cyclobenzaprine, but has not taken as she was confused why he started a "muscle relaxer". She had a baby in late February and notes the discomfort has occurred off and on since that time. Quality: sharpness Modifying Factors - (Improves): Present: sitting up - in bed with a pillow Modifying Factors - (Worsens): Present: movement - worsens back pain, other - bending forward worsens back pain Associated Symptoms: Present: back pain. Absent: chest pain, neck pain, diarrhea-gross blood, diarrhea-mucous, fatigue, fever/chills, nausea, vomiting, loss of appetite, shortness of breath, swelling/mass in abdomen, syncope Prior Treatment: Present: treated by physician - Dr. Luna with muscle relaxer Review of Systems - Review of Systems Constitutional: Absent: fever, chills, fatigue ENT: Present: nose congestion. Absent: ear pain, sore throat Respiratory: Present: cough. Absent: shortness of breath, wheezing Cardiology: Absent: chest pain, palpitations, syncope Gastrointestinal/Abdominal: Present: diarrhea - last week, now resolved, abdominal pain - LUQ. Absent: nausea, vomiting, constipation, eating less, drinking less Genitourinary: Absent: frequency, pain, dysuria, hematuria, discharge Musculoskeletal: Present: back pain - mid to lower back Skin: Absent: rash Neurological: Absent: dizziness/light-headedness, weakness, numbness, tingling - Patient's Past Medical History Patient History - Medical: Anxiety, Depression, Obesity Patient History - Cardiac/Respiratory: No pertinent hx Patient History - Cancer: No Hx of Cancer Patient History - Surgical Procedures: No surgical history Patient History - Other: None LMP (Calendar): 06/19/16 - patient 20 07/17 weeks by date - Social History Living Situations: home Abuse History: No History of abuse Psych History: Hx of Anxiety, Hx of Depression Does anyone smoke in the home?: No Smoking Status: Never smoker Have you smoked in the past 12 months: No Do you dip or chew tobacco: No Alcohol Use: rarely Drug Use: none - Immunizations Immunizations Up to Date: Yes Hx Pneumococcal Vaccination: No History of Influenza Vaccine: Yes Physical Exam - Physical Exam General Appearance: Present: wd/wn, alert, no apparent distress Ears, Nose, Throat: Present: nasal congestion, normal pharynx Neck: Present: normal inspection, nontender, full range of motion Respiratory: Present: no respiratory distress, normal breath sounds, no accessory muscle use. Absent: rales, rhonchi, wheezing Cardiovascular/Chest: Present: regular rate, rhythm, no murmur Gastrointestinal/Abdominal: Present: normal bowel sounds, nondistended, soft, no organomegaly, tenderness - mild tenderness to LUQ and RUQ, no RLQ, LLQ pain. Absent: rebound, mass Back Exam: Present: normal inspection, no CVA tenderness, vertebral tenderness - lumbar spine, decreased range of motion - due to pain, increases with lateral movements and forward bending, other - tenderness along L. sided lumbar muscle region Neurological Exam: Present: alert, oriented Skin Exam: Present: normal color, warm/dry ED Progress - Results and Orders Patient's Lab Results:: I have reviewed the patient's lab results. - Vital Signs Patient's Vital Signs:: I have reviewed the patient's vital signs. Vital Signs: Vital Signs 04/01/17 18:09 Temperature 36.6 C Pulse Rate 75 Respiratory 18 Rate Blood Pressure 163/91 O2 Sat by Pulse 100 Oximetry - X-Ray X-Ray #1 X-Ray: abdomen Interpretation: Reviewed by me X-ray Comments: [facility] PATIENT RADIOLOGY STUDY REPORT Patient Patient Name:JABIER ALONZO Date: 1995 Sex: F Order Number: [id number] Unique Exam ID: [id number] Exam Requested: [id number] - Abdomen Flat W/ Upright * Date Scheduled: 04-01-2017 07:32 PM Study Priority: Requesting Service: Requesting Physician: Orquidea Roy Reason for Exam: Abdominal Pain Radiological Report : [facility] [address] [place] [address] NAME: JABIER ALONZO : 1995 MR #: [id number] CC: LOC: ER ADM DATE: X-RAY REPORT RAD/Abdomen Flat W/ Upright * Exam Date: 04/01/2017 19:32 Ordering Physician: Orquidea Roy HISTORY: Abdominal Pain Additional history from technologist: History of left upper quadrant abdominal pain for a month off and on. TECHNIQUE: AP upright and supine views of the abdomen were obtained, total of 4 images. COMPARISONS: 03/24/2017 FINDINGS: Abdomen Flat W/ Upright *: No subdiaphragmatic free air. No abnormal dilation of large or small bowel. Stool retention noted throughout the colonic segments but especially in the right side of the abdomen. No definite pathologic calcifications apparent. Osseous structures are intact. IMPRESSION: Stool retention suggestive of constipation. No evidence for obstruction. Electronically signed by Juan Ramon Evangelista M.D.. Juan Ramon Evangelista MD Dict: 04/01/172042 Typed: 04/01/1704/01/[id number] , Approved by: JUAN RAMON EVANGELISTA Approval Date: 04-01-2017 Approval Time: 08:43 PM THIS REPORT WAS RECEIVED FROM THE [employer] SYSTEM - Progress/Reassessment Chief Complaint: Abdominal Pain Plan - Plan Plan: She was originally ordered for pain medication, but then later declined, as she did not want to be drowsy at home when caring for her baby. Xray shows stool retention, which could be contributing to her abd pain. Her back pain appears to musculoskeletal related. Discussed these findings with her and discussed starting tx with medications as prescribed by Dr. Luna. She admits she is doing a lot of the late night feedings and lifting of her baby. Recommended having spouse and family to help with lifting and be mindful of bending and lifting the baby and good posture with lifting. Departure Clinical Impression: Lumbar strain Qualifiers: Encounter type: initial encounter Qualified Code(s): S39.012A - Strain of muscle, fascia and tendon of lower back, initial encounter Constipation Qualifiers: Constipation type: unspecified constipation type Qualified Code(s): K59.00 - Constipation, unspecified - Departure Disposition: Home self-care Condition: Good Instructions: Constipation, Adult, [id number], Low Back Sprain With Rehab- [facility] Additional Instructions: Increase fluid intake of water and increase fiber in diet Take Miralax 17gm daily until you have soft pudding consistency for 3 days, then slowly decrease dosing as needed to keep stools soft Apply ice or heat to back as needed for pain Start use of Cyclobenzaprine as prescribed (may take 1/2 tablet, if whole tablet makes you drowsy) Call your primary care doctor next week to schedule follow up appt, as additional testing may be needed if symptoms do not improve Prescriptions: Polyethylene Glycol 3350 [Miralax] 17 gm PO DAILY PRN 10 Days #1 btl PRN Reason: Constipation
[2017-04-01 19:59] LABS: Albumin * 3.9 gm/dl (3.4-5.0); Anion Gap 14.2 mmol/L (6.8-13.8); BUN/Creatinine Ratio 12.5 (9.0-21.6); Bilirubin, Total 0.2 mg/dL (0.0-1.1); Ca. Corrected For Albumin 8.9 mg/dL (8.4-10.2); Calcium * 9.1 mg/dL (7.9-10.9); Carbon Dioxide 25.6 mmol/L (24-32.6); Potassium 3.8 mmol/L (3.4-4.6)
[2017-04-01 19:59] LABS: Urine Bilirubin Negative (NEGATIVE); Urine Ketone Negative (NEGATIVE); Urine Nitrite Negative (NEGATIVE); Urine Protein Negative (NEGATIVE); Urine Specific Gravity 1.025 SP.GR. (1.005-1.010); Urine Urobilinogen Normal (NORMAL)
[2017-04-01] MEDS ORDERED: MORPHINE SULFATE 4 MG/ML SYRG IM ONE (20:00)
[2017-04-01] MEDS ORDERED: MORPHINE SULFATE 4 MG/ML SYRG ONE (20:01)
[2017-04-01] MEDS ORDERED: ONDANSETRON 4 MG TAB.RAPDIS PO ONE (20:01)
[2017-04-01] MEDS ORDERED: ONDANSETRON 4 MG TAB.RAPDIS ONE (20:02)
[2017-04-01 20:34] LABS: Urine Appearance Clear; Urine Bacteria 1+; Urine Blood 5 /ul (NEGATIVE); Urine Color Yellow; Urine RBC None Seen /hpf (0-5); Urine WBC 0-5 /hpf (0-5)
[2017-04-01] MEDS ORDERED: MAGNESIUM CITRATE 300 ML BTL ONE (21:07)
[2017-04-01] MEDS ORDERED: MAGNESIUM CITRATE 300 ML BTL PO ONE (21:08)
[2017-04-01 21:32] VITALS: BP 155/86
== END 2017-04-01 21:10 | disposition home or self-care (01) ==
LOC: ER 17:56
DX: S39.012A Strain of muscle, fascia and tendon of lower back, initial encounter (principal); K59.00 Constipation, unspecified; X50.0XXA Overexertion from strenuous movement or load, initial encounter

== ENCOUNTER 2017-05-05 18:44 | Emergency (ER) | payer MEDICAID ==
[2017-05-05 18:53] VITALS: BP 151/108
== END 2017-05-05 18:57 | disposition left against medical advice (07) ==
LOC: ER 18:44
DX: Z53.21 Procedure and treatment not carried out due to patient leaving prior to being seen by health care provider (principal)

== ENCOUNTER 2017-05-06 13:01 | Emergency (ER) | payer MEDICAID ==
[2017-05-06] MEDS ORDERED: DICYCLOMINE HCL 10 MG/ML AMPUL IM ONE ×2 (13:17→13:51)
[2017-05-06] MEDS ORDERED: KETOROLAC TROMETHAMINE 30 MG/ML VIAL IM ONE (13:17)
[2017-05-06] MEDS ORDERED: PROMETHAZINE HCL 25 MG/ML AMPUL IM ONE (13:19)
[2017-05-06 13:38] LABS: Hematocrit 42.2 % (37.0-47.0); Hemoglobin 14.3 gm/dL (12.5-16.0); Mean Cell Volume 80.8 fl (78-100); Mean Corpuscular Hemoglobin 27.4 pg (27-31); Mean Corpuscular Hgb Conc 33.9 g/dl (32-36); Mean Platelet Volume 10.8 fl (6.0-9.5); Neutrophil # 5.5 K/mm3 (1.3-6.0); Neutrophil % 69.1 % (42-75.0); Platelet Count 278 K/mm3 (150-450); Red Blood Count 5.22 M/mm3 (4.2-5.4); Red Cell Distribution Width 12.7 % (11.5-14.0)
[2017-05-06 13:48] LABS: Urine Bilirubin 3 mg/dl (NEGATIVE); Urine Blood Negative /ul (NEGATIVE); Urine Ketone Negative (NEGATIVE); Urine Nitrite Negative (NEGATIVE); Urine Protein 30 mg/dL (NEGATIVE); Urine Specific Gravity >=1.030 SP.GR. (1.005-1.010)
[2017-05-06] MEDS ORDERED: KETOROLAC TROMETHAMINE 30 MG/ML VIAL ONE (13:51)
[2017-05-06] MEDS ORDERED: PROMETHAZINE HCL 25 MG/ML AMPUL ONE (13:51)
[2017-05-06 13:52] LABS: Albumin * 4.5 gm/dl (3.4-5.0); Anion Gap 16.1 mmol/L (6.8-13.8); BUN/Creatinine Ratio 11.9 (9.0-21.6); Bilirubin, Total 2.2 mg/dL (0.0-1.1); Ca. Corrected For Albumin 8.8 mg/dL (8.4-10.2); Calcium * 9.5 mg/dL (7.9-10.9); Carbon Dioxide 25.9 mmol/L (24-32.6); Total Protein 8.6 gm/dL (6.2-8.2)
[2017-05-06 13:59] LABS: Urine Amorphous Sediment Few - 1+ (NONE-FEW); Urine Appearance Clear; Urine Bacteria 1+; Urine Color Amber; Urine RBC None Seen /hpf (0-5); Urine WBC None Seen /hpf (0-5)
[2017-05-06] MEDS ORDERED: NORMAL SALINE 1,000 ML IV ONE (15:07)
[2017-05-06] MEDS ORDERED: PIPERACILLIN SODIUM/TAZOBACTAM 3.375 GM in DEXTROSE 5 % IN WATER 100 ML IV ONE ×2 (15:15)
--- NOTE | 2017-05-06 15:55 | ERNOTE ---
Abdominal HPI - Narrative Date of Service: 05/06/17 - General Chief Complaint: Abdominal Pain Time Seen by Provider: 05/06/17 13:12 Source: patient Exam Limitations: no limitations - Immun/Allergies/Home Medications Immunizatons: IMMUNIZATION HX Immunizations Up to Date Yes History of Influenza Vaccine No Hx Pneumococcal Vaccination No Allergies/Adverse Reactions: Allergies azithromycin [From Zithromax Z-Shiva] Allergy (Verified 05/06/17 13:07) Itching Home Medications: HOME MEDICATIONS EPINEPHrine [Epipen] 0.3 mg IJ ONCE #1 auto.injct 12/21/16 [Last Taken Unknown] Ibuprofen [Motrin] 800 mg PO Q6H PRN tablet 03/04/17 [Last Taken Unknown] - History of Present Illness Narrative: Patient presents with upper abdominal pain diffusely since last night. This started around 6pm last night. Vomited twice. No fever. No diarrhea. Normal bowel movements. She came here but the waits were long so she went to [facility]. She had a w/u there and was sent home but the pain continued. Can be severe. Feels it into her back. D/T the fact her pain worsened and continued she returned. No CP or SOB. Timing: constant, getting worse Quality: severe Modifying Factors - (Improves): Present: other - nothing Modifying Factors - (Worsens): Present: other - nothing Associated Symptoms: Present: back pain. Absent: chest pain, fever/chills, shortness of breath Prior Treatment: Present: recently seen Review of Systems - Review of Systems Constitutional: Absent: fever Respiratory: Absent: shortness of breath Cardiology: Present: other. Absent: chest pain Genitourinary: Absent: dysuria Skin: Absent: rash All Other Systems: All systems neg except as marked - Patient's Past Medical History Patient History - Medical: Anxiety, Depression, Obesity Patient History - Cardiac/Respiratory: No pertinent hx Patient History - Cancer: No Hx of Cancer Patient History - Surgical Procedures: No surgical history Patient History - Other: None - Family History Mother Family History - Medical: No pertinent hx Father Family History - Medical: No pertinent hx - Social History Living Situations: home Abuse History: No History of abuse Psych History: Hx of Anxiety, Hx of Depression Smoking Status: Never smoker - Immunizations Immunizations Up to Date: Yes Hx Pneumococcal Vaccination: No History of Influenza Vaccine: No Physical Exam - Physical Exam General Appearance: Present: alert, no apparent distress Head Exam: Present: normal inspection, no evidence of injury Eye Exam: Normal inspection: bilateral, PERRL: bilateral Ears, Nose, Throat: Present: normal ENT inspection Neck: Present: normal inspection, nontender Respiratory: Present: no respiratory distress, normal breath sounds, lungs clear Cardiovascular/Chest: Present: regular rate, rhythm Gastrointestinal/Abdominal: Present: normal bowel sounds, soft, other - Upper abdominal tenderness, no peritoneal signs. Maximum epigastric and right sided Back Exam: Absent: CVA tenderness (R), CVA tenderness (L) Extremity Exam: Present: normal inspection Neurological Exam: Present: alert, normal mood/affect, no motor/sensory deficits Skin Exam: Present: normal color, warm/dry ED Progress - Results and Orders Patient's Lab Results:: I have reviewed the patient's lab results. - Vital Signs Patient's Vital Signs:: I have reviewed the patient's vital signs. Vital Signs: Vital Signs 05/06/17 05/06/17 05/06/17 13:07 14:25 15:30 Temperature 37.1 C 36.8 C 36.5 C Pulse Rate 92 71 102 H Respiratory 18 14 16 Rate Blood Pressure 153/100 152/108 138/88 O2 Sat by Pulse 98 98 94 Oximetry - X-Ray X-Ray #1 X-Ray: abdomen Interpretation: Interp. by me X-ray Comments: I reviewed official radiology report - CT/Ultrasound CT/Ultrasound Narrative: I reviewed official US report - Progress/Reassessment Chief Complaint: Abdominal Pain Progress Note-Subjective: 05/06/17 15:[address] Salas, he recommends transfer to [facility]. D/W Dr Marti at [facility] who accepts transfer. Pt currently medically stable for transfer. Pt agreeable. Departure Clinical Impression: Common bile duct stone, Cholelithiases - Departure Disposition: [facility] Condition: Stable
[2017-05-06 17:13] VITALS: BP 122/88
== END 2017-05-06 17:36 | disposition short-term general hospital (02) ==
LOC: ER 13:01
DX: K80.40 Calculus of bile duct with cholecystitis, unspecified, without obstruction (principal)

== ENCOUNTER 2020-06-22 00:01 | Inpatient (IN) ==
[2020-06-22] MEDS ORDERED: ONDANSETRON 4 MG TAB.RAPDIS PO PRN (00:02)
[2020-06-22] MEDS ORDERED: OXYTOCIN/0.9 % SODIUM CHLORIDE 30 UNITS/500 ML BAG IV ONE ×2 (00:02→22:10)
[2020-06-22] MEDS ORDERED: RINGER'S SOLUTION,LACTATED 1,000 ML IV ONE (00:02)
[2020-06-22] MEDS: MISOPROSTOL 100 MCG TABLET VG PRN ×2 (00:56→05:18)
[2020-06-22] MEDS ORDERED: PENICILLIN G POTASSIUM 5 MILLIONUNT in DEXTROSE 5 % IN WATER 100 ML IV ONE ×2 (01:00)
[2020-06-22] MEDS: PENICILLIN G POTASSIUM 2.5 MILLIONUNT in DEXTROSE 5 % IN WATER 100 ML IV SCH ×10 (05:13→21:11)
[2020-06-22] MEDS ORDERED: NALOXONE HCL 1 MG/1 ML SYRG IV PRN (09:28)
[2020-06-22] MEDS ORDERED: BUPIVACAINE HCL/0.9 % NACL/PF 250 ML EP PRN (09:28)
[2020-06-22] MEDS ORDERED: ONDANSETRON HCL/PF 2 MG/ML VIAL IV PRN (09:28)
[2020-06-22] MEDS ORDERED: fentaNYL CITRATE/PF 50 MCG/ML AMPUL IT SCH (09:30)
[2020-06-22 09:39] LABS: Hematocrit 35.9 % (37.0-47.0); Hemoglobin 12.1 gm/dL (12.5-16.0); Mean Cell Volume 87.6 fl (78-100); Mean Corpuscular Hemoglobin 29.5 pg (27-31); Mean Corpuscular Hgb Conc 33.7 g/dl (32-36); Mean Platelet Volume 11.9 fl (8-12.5); Neutrophil # 6.4 K/mm3 (1.3-6.0); Neutrophil % 70.2 % (42-75.0); Platelet Count 172 K/mm3 (150-450); Red Cell Distribution Width 12.5 % (11.5-14.0); White Blood Count 9.1 K/mm3 (4.0-10.5)
--- NOTE | 2020-06-22 09:48 | ANES ---
Anesthesia Pre Procedure Eval HOME MEDICATIONS prenat.vits,yue,wrf-wgop-adadp 1 tab PO DAILY 12/04/19 [Last Taken 06/06/20] aspirin 81 mg tablet,delayed release 81 mg PO DAILY 02/05/20 [Last Taken 06/06/20] ferrous sulfate 325 mg (65 mg iron) tablet 325 mg PO DAILY #30 tab 04/23/20 [Last Taken 06/06/20] ascorbic acid (vitamin C) 500 mg capsule 500 mg PO DAILY cap 05/05/20 [Last Taken 06/06/20] calcium carbonate 500 mg calcium (1,250 mg) chewable tablet 1,000 mg PO DAILY tab 05/05/20 [Last Taken 06/06/20] Allergies/Adverse Reactions: Allergies Allergy/AdvReac Type Severity Reaction Status Date / Time azithromycin Allergy Intermediate Itching Verified 06/16/20 13:58 [From Zithromax Z-Shiva] weed pollen Allergy Intermediate hives Verified 06/16/20 13:58 - Planned Procedure Planned Procedure: medical induction for gestational hypertension Medication List Reviewed:: Yes Allergies Verified: Yes Medical History (Last Reviewed 06/22/20 @ 09:47 by Deven To CRNA) Morbid obesity with BMI of 40.0-44.9, adult (Chronic) Migraine (Chronic) Asymptomatic bacteriuria (Resolved) Cholelithiases (Resolved) Chronic pruritic rash in adult (Resolved) Common bile duct stone (Resolved) Constipation (Resolved) Hypertension affecting in third trimester (Resolved) Lumbar strain (Resolved) Pre-eclampsia Onset Date: ~2016 Surgical History (Last Reviewed 06/22/20 @ 09:47 by Deven To CRNA) Hx laparoscopic cholecystectomy Onset Date: 04/2017 Family History (Last Reviewed 06/22/20 @ 09:47 by Deven To CRNA) Father Diabetes Asthma Mother Diabetes Grandmother Diabetes Grandfather Diabetes - Family Anesthesia History Family History:: no untoward family reactions to anesthesia, no familial bleeding tendencies, no family history of clotting disorders, no family history of premature - Airway/Neck/Teeth Within Normal Limits:: Yes Teeth Condition: intact Neck Exam: full range of motion Mallampatti Score: 2 Thyromental (T-M) distance: > 6 cm Mandibulo Hyoid distance: > 3 cm - Respiratory Respiratory Physical: lungs clear Smoking Status: Never smoker Sleep Apnea currently treated: No Sleep Apnea by current assessment: No - Cardiovascular Cardiac History: hypertension Tolerate Activity: Fair Heart Sounds: S1 & S2, Regular - Gastrointestinal NPO since: 2400 - Anesthesia Assessment and Plan ASA Class: PS, III, E Anesthesia Type Plan: Epidural - CSE for labor analgesia
--- NOTE | 2020-06-22 09:49 | HP ---
Chief Complaint - Chief Complaint Date of Service: 06/22/20 Time of Service: 08:55 Chief Complaint: induction of labor for GHTN History of Present Illness: 25 yo at 37w0d admitted for induction of labor due to GHTN. This complicated by anemia, GHTN, h/o preeclampsia, morbid obesity, migraines. Rh positive Rubella immune GBS positive Medical History (Last Reviewed 06/22/20 @ 09:40 by Memo Mtz DO) Morbid obesity with BMI of 40.0-44.9, adult (Chronic) Migraine (Chronic) Asymptomatic bacteriuria (Resolved) Cholelithiases (Resolved) Chronic pruritic rash in adult (Resolved) Common bile duct stone (Resolved) Constipation (Resolved) Hypertension affecting in third trimester (Resolved) Lumbar strain (Resolved) Pre-eclampsia Onset Date: ~2016 Surgical History: Surgical History (Last Reviewed 06/22/20 @ 09:40 by Memo Mtz DO) Hx laparoscopic cholecystectomy Onset Date: 04/2017 Family History: Family History (Last Reviewed 06/22/20 @ 09:40 by Memo Mtz DO) Father Diabetes Asthma Mother Diabetes Grandmother Diabetes Grandfather Diabetes Social History: (Last Reviewed 06/22/20 @ 09:40 by Memo Mtz DO) Social History: Marital status: household members: spouse current occupational status: employed current occupation: [employer] Highest level of school completed/degree received: high school graduate Service: No Tobacco: Smoking Status: Former smoker Alcohol: alcohol intake: current alcohol intake frequency: holiday/special occasion Substance Use: substance use type: does not use Dietary Habits: caffeine: No Exercise: Physical activity type: none Review Of Systems (GEN) - Review of Systems Generalized/Overall Review: Present: No Symptoms Reported EENTM: Present: No Symptoms Reported Respiratory: Present: No Symptoms Reported Cardiac: Present: No Symptoms Reported Abdominal: Present: No Symptoms Reported Genitourinary: Present: No Symptoms Reported Musculoskeletal: Present: No Symptoms Reported Neurological: Present: No Symptoms Reported, Headache - day of admission, but resolved prior to coming to the hospital. Skin: Present: No Symptoms Reported Endocrine: Present: No Symptoms Reported Immunizations: IMMUNIZATION HX Immunizations Up to Date Yes History of Influenza Vaccine Yes Hx Pneumococcal Vaccination No Allergies/Adverse Reactions: Allergies Allergy/AdvReac Type Severity Reaction Status Date / Time azithromycin Allergy Intermediate Itching Verified 06/16/20 13:58 [From Zithromax Z-Shiva] weed pollen Allergy Intermediate hives Verified 06/16/20 13:58 Home Medications: HOME MEDICATIONS prenat.vits,yue,qdf-vpgw-cukrg 1 tab PO DAILY 12/04/19 [Last Taken 06/06/20] aspirin 81 mg tablet,delayed release 81 mg PO DAILY 02/05/20 [Last Taken 06/06/20] ferrous sulfate 325 mg (65 mg iron) tablet 325 mg PO DAILY #30 tab 04/23/20 [Last Taken 06/06/20] ascorbic acid (vitamin C) 500 mg capsule 500 mg PO DAILY cap 05/05/20 [Last Taken 06/06/20] calcium carbonate 500 mg calcium (1,250 mg) chewable tablet 1,000 mg PO DAILY tab 05/05/20 [Last Taken 06/06/20] Exam - Exam Constitutional: Present: Alert, Oriented x3, Cooperative, No distress ENT Exam: Present: hearing grossly normal Neck: Present: non-tender. Absent: thyromegaly Breasts: Present: Exam deferred Respiratory: Present: lungs clear, no respiratory distress Cardiovascular/Chest: Present: normal peripheral pulses, regular rate, rhythm Abdomen: Present: soft, nontender, no rebound tenderness, other - gravid /Rectal: Present: Other - Cervix 1/70/-3 Extremity: Present: no calf tenderness, lower extremity edema - 1+ Skin Exam: Present: normal color, warm/dry, no cyanosis Lymphatic: Present: no adenopathy Neurologic: Present: alert, normal mood/affect, oriented x 3, other - DTR 2/4, no clonus Appearance: Present: appropriate appearance, appropriate insight Eye contact: Present: cooperative, good eye contact, normal speech Thoughts: Present: normal thought pattern, normal mood /affect Assessment/Plan - Assessment/Plan (1) Gestational hypertension Assessment: Admit for induction of labor. IV PCN for GBS prophylaxis. Preeclamptic labs. Seizure precautions. Epidural and pitocin PRN. Problem: Acute Qualifiers: Trimester: third trimester Qualified Code(s): O13.3 - Gestational [-induced] hypertension without significant proteinuria, third trimester (2) History of pre-eclampsia Problem: Chronic (3) Morbid obesity with BMI of 40.0-44.9, adult Problem: Chronic (4) Migraine Problem: Inactive Qualifiers: Migraine type: unspecified Status migrainosus presence: without status migrainosus Intractability: not intractable Qualified Code(s): G43.909 - Migraine, unspecified, not intractable, without status migrainosus (5) Group B Streptococcus carrier, antepartum Problem: Acute (6) Anemia Problem: Chronic Qualifiers: Anemia type: iron deficiency Iron deficiency anemia type: inadequate dietary iron intake Qualified Code(s): D50.8 - Other iron deficiency anemias
--- NOTE | 2020-06-22 09:52 | PN ---
Progess Note - Interim Date: 06/22/20 Time: 09:10 Narrative: 06/22/20 09:49 Patient becoming much more uncomfortable with contractions-desires epidural. Vital signs stable, but increasing elevation in blood pressures suspected due to increase in pain. Status post Cytotec x2 doses-last dose at 0515. FHT: 150 baseline, reassuring contractions q 3 min Cervix: 3-4/70/-1 Impression: Intrauterine at 37 weeks. Induction of labor for gestational hypertension. Increasing blood pressures probably due to increased pain. GBS carrier-status post 3 doses of penicillin. Plan: Request epidural. Will order preeclamptic labs and put on seizure precautions.
[2020-06-22 10:03] LABS: Albumin * 2.6 gm/dl (3.4-5.0); BUN/Creatinine Ratio 15.4 (9.0-21.6); Bilirubin, Total 0.3 mg/dL (0.0-1.1); Ca. Corrected For Albumin 9.8 mg/dL (8.4-10.2); Carbon Dioxide 21.8 mmol/L (24-32.6); Potassium 3.8 mmol/L (3.4-4.6); Total Protein 6.2 gm/dL (6.2-8.2)
--- NOTE | 2020-06-22 10:15 | ANES ---
Post Anesthesia Discharge - Transfer of Care Transfer of Care handoff given to nurse: Yes - Discharge from PACU Discharge from PACU when meets criteria: Yes - Comfortable post CSE.
--- NOTE | 2020-06-22 10:15 | ANES ---
Anesthesia Procedure Note Procedure Note: ANESTHESIA PROCEDURE NOTE Date of Procedure: 06/22/2020 Time of procedure: 9:45 AM. Performed by: DOMINIQUE Mathews CRNA, MSN Referral Agent: Gale Aldana RN. Preprocedure diagnosis: Active labor, labor pain/gestational hypertension. Post procedure diagnosis: Same. Procedure:Epidural for labor analgesia L3-4. Indications: Labor pain. Findings: See below. Details of the procedure: The patient was placed on the side of the bed in sitting positionand prepped with DuraPrep then draped in a sterile fashion. Lidocaine 1% was infiltrated to the skin and subcutaneous tissues at the level of the L3-4 interspace. An 18-gauge Touhy needle was used to approach the epidural space with loss of resistance technique. Once loss of resistance was achieved a 27-gauge spinal needle was passed through the epidural needle and CSF was contacted. After CSF returned, 20 mcg of fentanyl was injected in the spinal needle was removed the epidural catheter was then threaded approximately 4 cm in the epidural needle was removed. The catheter was taped in place and after careful aspiration 3 mL of 1.5% lidocaine with 1-200,000 epinephrine was injected without change in maternal heart rate or sensorium. . EBL: Minimal. Fluids: N/A. Specimen: N/A. Post procedure condition: The patient tolerated the procedure well with good relief. No complications were noted. Thank you for this consultation. Deven To CRNA, ARNP, MSN
[2020-06-22] MEDS: DEXTROSE 5%-LACTATED RINGERS 1,000 ML IV PRN ×2 (10:16→17:39)
--- NOTE | 2020-06-22 10:26 | ANES ---
Post Anesthesia Assessment - Vital Signs Airway Patency: Normal - Mental Status Level Of Consciousness: Awake, Alert, Appropriate - Pain Level Pain Score: 0 - N/V Assessment Nausea/Vomiting Presence: None Dehydration:: No
[2020-06-22 11:17] LABS: Random Urine Total Protein 51.6 mg/dL (0-12)
--- NOTE | 2020-06-22 14:36 | PN ---
Progess Note - Interim Date: 06/22/20 Time: 14:34 Narrative: 06/22/20 14:34 Patient comfortable with epidural Vital signs stable. Labs reassuring. Pitocin at 6 mu/min. FHT: 150 baseline, reassuring contractions q 1-2 min Cervix: 5/70/-3, AROM-clear Impression: Intrauterine at 37 weeks induction of labor for gestational hypertension with slow progress. GBS carrier-status post 4 doses of penicillin Plan: Anticipate better progress of labor now that water is broken.
--- NOTE | 2020-06-22 17:05 | PN ---
Progess Note - Interim Date: 06/22/20 Time: 17:04 Narrative: 06/22/20 17:04 Patient feeling more pressure Vital signs stable. Pitocin at 4 mu/min. FHT: 150 baseline, reassuring contractions q 2-4 min Cervix: 5-6/80/-2, floor bag-AROM clear Impression: Intrauterine at 37 weeks induction of labor for gestational hypertension. GBS positive. Plan: Continue present plan
--- NOTE | 2020-06-22 21:03 | PN ---
Progess Note - Interim Date: 06/22/20 Time: 21:01 Narrative: 06/22/20 21:01 Patient feeling lots of pressure Vital signs stable. Pitocin at 4 mu/min. FHT: 145 baseline, good xjtv-xo-gjmr variability with early decelerations contractions q 2-3 min Cervix: Complete/-2 Impression: Intrauterine at 37 weeks induction of labor for gestational hypertension; beginning second stage of labor. GBS carrier-status post 5 doses of penicillin Plan: Anticipate normal spontaneous vaginal delivery soon.
[2020-06-22] MEDS ORDERED: BENZOCAINE/MENTHOL 81 SPRAY CAN TP PRN (22:10)
[2020-06-22] MEDS ORDERED: IBUPROFEN 800 MG TABLET PO PRN (22:10)
[2020-06-22] MEDS ORDERED: SENNOSIDES 8.6 MG TABLET PO PRN (22:10)
[2020-06-22] MEDS ORDERED: BISACODYL 10 MG SUPP.RECT RC PRN (22:10)
[2020-06-22] MEDS ORDERED: HYDROCORTISONE 30 APPL TUBE TP PRN (22:10)
[2020-06-22] MEDS ORDERED: GLYCERIN/WITCH HAZEL LEAF 40 APPL BOX TP PRN (22:10)
--- NOTE | 2020-06-22 22:18 | OR ---
Operative Report - Dictated Report Narrative: Delivery of a viable male at 2155 on 06/22/2020 with Apgars 9 and 9, weighing 3713 g in REMI position. Baby was pink and vigorously crying within 30 seconds of delivery so cord clamping was delayed approximately 60 seconds. 2nd stage of labor: Approximately 76 minutes head/body interval: 66 seconds Anesthesia: Epidural estimated weight: 3700 g diabetes: No type: Gestational diabetes - insulin dependent Attendants at : [OB: Memo Mtz, Ped: Not present, Nurses: Calli Lopez and Harmony Maynard, Others: None Position of head at delivery: REMI right shoulder anterior Maneuvers used: Dillon yes, Suprapubic pressure yes Description: head delivered spontaneously with a contraction without mother pushing. Mother group began pushing after the contraction to deliver the shoulders unsuccessfully. With the aid of Dillon and suprapubic pressure and coming contraction the baby delivered easily. No downward pressure was applied to the head. moving all extremities at yes, Injuries noted: None Cord gases not obtained Mother's condition: No lacerations EBL: 50 mL Mother informed of dystocia and potential sequelae. Recommendations for future pregnancies: Do not feel she would have difficulty pushing out another 8 pound baby. History for MU History for Definition: * The number of deliveries resulting in a live the patient experienced prior to current hospitalization * The previous delivery of live twins or any live multiple gestation is consid ered one live event. *If primagravida or nulliparous is documented select zero for the number of previous live births. Live Events: Live Events: 1
[2020-06-22] MEDS: IBUPROFEN 800 MG TABLET PO PRN (23:27)
[2020-06-23] MEDS: oxyCODONE HCL/ACETAMINOPHEN 1 TAB TABLET PO PRN ×4 (00:24→13:21)
[2020-06-23] MEDS ORDERED: MAGNESIUM SULFATE IN WATER 50 ML, MAGNESIUM SULFATE IN WATER 50 ML IV ONE ×2 (09:26)
[2020-06-23] MEDS ORDERED: CALCIUM GLUCONATE 4.65 MEQ/10 ML VIAL IV PRN (09:26)
[2020-06-23] MEDS ORDERED: DEXTROSE 5%-LACTATED RINGERS 1,000 ML IV PRN (09:26)
[2020-06-23] MEDS ORDERED: MAGNESIUM SULFATE IN WATER 1,000 ML IV SCH (09:30)
[2020-06-23] MEDS ORDERED: NIFEdipine 10 MG CAPSULE PO SCH (09:30)
[2020-06-23] MEDS: DOCUSATE SODIUM 100 MG CAPSULE PO SCH ×2 (10:13→22:20)
[2020-06-23] MEDS: PRENATAL VITS96/IRON FUM/FOLIC 1 TAB TABLET PO SCH (10:13)
[2020-06-23] MEDS: CALCIUM CARBONATE 500 MG TAB.CHEW PO SCH (10:13)
[2020-06-23] MEDS: FERROUS SULFATE 325 MG TABLET PO SCH (10:13)
[2020-06-23] MEDS: ASCORBIC ACID 500 MG TABLET PO SCH (10:14)
[2020-06-23 10:52] LABS: Hematocrit 33.9 % (37.0-47.0); Hemoglobin 11.5 gm/dL (12.5-16.0); Mean Cell Volume 87.6 fl (78-100); Mean Corpuscular Hemoglobin 29.7 pg (27-31); Mean Corpuscular Hgb Conc 33.9 g/dl (32-36); Mean Platelet Volume 11.5 fl (8-12.5); Neutrophil # 10.7 K/mm3 (1.3-6.0); Neutrophil % 76.7 % (42-75.0); Platelet Count 158 K/mm3 (150-450); Red Blood Count 3.87 M/mm3 (4.2-5.4); Red Cell Distribution Width 12.4 % (11.5-14.0)
[2020-06-23 11:43] LABS: Albumin * 2.3 gm/dl (3.4-5.0); Anion Gap 13.6 mmol/L (6.8-13.8); BUN/Creatinine Ratio 11.7 (9.0-21.6); Bilirubin, Total 0.2 mg/dL (0.0-1.1); Ca. Corrected For Albumin 9.6 mg/dL (8.4-10.2); Calcium * 8.6 mg/dL (7.9-10.9); Carbon Dioxide 20.9 mmol/L (24-32.6); Potassium 3.5 mmol/L (3.4-4.6); Total Protein 5.7 gm/dL (6.2-8.2)
--- NOTE | 2020-06-23 13:01 | PN ---
Subjective - Date and Time Seen Date: 06/23/20 Time: 12:58 Objective - Vitals Vitals: Last Vital Signs Temp 36.4 C 06/23/20 08:10 Pulse 91 06/23/20 11:01 Resp 16 06/23/20 11:01 BP 130/66 06/23/20 11:01 Pulse Ox 97 06/23/20 11:01 Patient with severe range blood pressures this morning. She denies headache, visual changes, or epigastric pain. Blood pressures within normal limits since receiving nifedipine 10 mg p.o. x1 and starting on IV magnesium sulfate. Lochia wnl abdomen - soft, nontender Uterus -firm, at umbilicus - 1 No calf tenderness DTR-/, no clonus Impression: day #1 - s/p spontaneous vaginal delivery. Gestational hypertension with severe features awaiting protein creatinine ratio to distinguish from preeclampsia. Patient tolerating IV magnesium at 2 g/h well. Plan: Continue to monitor blood pressures, urine output, and symptoms closely. We will continue magnesium for total of 24 hours. - Abnormal Lab Findings Abnormal Lab Findings: Abnormal Lab Results 06/23/20 06/23/20 Range/Units 10:45 10:45 WBC 14.0 H D (4.0-10.5) K/mm3 RBC 3.87 L (4.2-5.4) M/mm3 Hgb 11.5 L (12.5-16.0) gm/dL Hct 33.9 L (37.0-47.0) % Immature Gran % (Auto) 0.70 H (0.001-0.429) % Immature Gran # (Auto) 0.10 H (0.000-0.0310) K/mm3 Neutrophils % 76.7 H (42-75.0) % Lymphocytes % 15.1 L (20-51) % Neutrophils # 10.7 H (1.3-6.0) K/mm3 Chloride 107 H (97-106) mmol/L Carbon Dioxide 20.9 L (24-32.6) mmol/L Random Glucose 146 H D (70-110) mg/dL ALT 15 L (19-67) U/L Total Protein 5.7 L (6.2-8.2) gm/dL Albumin 2.3 L (3.4-5.0) gm/dl Cauti Physician Documentation - Urinary Catheter Management Urethral (Ortiz) Date of Insertion: 06/22/20 Time of Insertion: 10:30 Date of Removal: 06/22/20 Time of Removal: 21:45 Assessment/Plan - Problems/Diagnosis (1) Gestational hypertension Problem: Acute Qualifiers: Trimester: third trimester Qualified Code(s): O13.3 - Gestational [-induced] hypertension without significant proteinuria, third trimester (2) History of pre-eclampsia Problem: Chronic (3) Morbid obesity with BMI of 40.0-44.9, adult Problem: Chronic (4) Migraine Problem: Inactive Qualifiers: Migraine type: unspecified Status migrainosus presence: without status migrainosus Intractability: not intractable Qualified Code(s): G43.909 - Migraine, unspecified, not intractable, without status migrainosus (5) Group B Streptococcus carrier, antepartum Problem: Acute (6) Anemia Problem: Chronic Qualifiers: Anemia type: iron deficiency Iron deficiency anemia type: inadequate dietary iron intake Qualified Code(s): D50.8 - Other iron deficiency anemias
[2020-06-23] MEDS: IBUPROFEN 800 MG TABLET PO PRN ×2 (13:21→22:07)
[2020-06-23 13:57] LABS: Random Urine Total Protein Less than 6.0 mg/dL (0-12)
[2020-06-24] MEDS: IBUPROFEN 800 MG TABLET PO PRN (06:06)
[2020-06-24] MEDS: CALCIUM CARBONATE 500 MG TAB.CHEW PO SCH (09:13)
[2020-06-24] MEDS: PRENATAL VITS96/IRON FUM/FOLIC 1 TAB TABLET PO SCH (09:14)
[2020-06-24] MEDS: FERROUS SULFATE 325 MG TABLET PO SCH (09:14)
[2020-06-24] MEDS: DOCUSATE SODIUM 100 MG CAPSULE PO SCH (09:14)
[2020-06-24] MEDS: ASCORBIC ACID 500 MG TABLET PO SCH (09:14)
[2020-06-24] MEDS ORDERED: NIFEdipine 30 MG TAB.SR.24H PO SCH (09:15)
[2020-06-24] MEDS: oxyCODONE HCL/ACETAMINOPHEN 1 TAB TABLET PO PRN ×2 (09:31→14:22)
--- NOTE | 2020-06-24 11:51 | PN ---
Progess Note - Interim Date: 06/24/20 Time: 08:55 Narrative: 06/24/20 11:48 Patient denies headaches, visual changes, epigastric pain, or edema. Breast- feeding. Blood pressures in the low to mid elevated range. No severe blood pressures. 24h I/O - 2131/6530 Lochia wnl abdomen - soft, nontender Uterus -firm, at umbilicus - 2 No calf tenderness, DTR 2/4, no clonus, LE edema 1/4 Impression: day #2 - s/p spontaneous vaginal delivery. Gestational hypertension with severe features-resolving. Morbid obesity. Plan: Routine discharge instructions with preeclampsia precautions. Follow-up blood pressure check in 1 week.
--- NOTE | 2020-06-24 12:01 | DS ---
OB Discharge Summary (1) Gestational hypertension Status: Acute Qualifiers: Trimester: third trimester Qualified Code(s): O13.3 - Gestational [-induced] hypertension without significant proteinuria, third trimester (2) History of pre-eclampsia Status: Chronic (3) Morbid obesity with BMI of 40.0-44.9, adult Status: Chronic (4) Migraine Status: Inactive Qualifiers: Migraine type: unspecified Status migrainosus presence: without status migrainosus Intractability: not intractable Qualified Code(s): G43.909 - Migraine, unspecified, not intractable, without status migrainosus (5) Group B Streptococcus carrier, antepartum Status: Resolved (6) Anemia Status: Chronic Qualifiers: Anemia type: iron deficiency Iron deficiency anemia type: inadequate dietary iron intake Qualified Code(s): D50.8 - Other iron deficiency anemias Delivery Date: 06/22/20 Delivery Time: 21:55 :: 2 Para:: 2 Gestational weeks:: 37 Gestational days:: 0 Intrapartum Procedures: Spontaneous Vaginal Delivery, Delivered, Anesthesia - Epidural, Other - Mild shoulder dystocia resolved with Dillon maneuver and suprapubic pressure. Procedures: Other - IV magnesium sulfate, antihypertensive medication /OP Complications: GHTN - with severe range blood pressures Discharge Diagnosis: Term -Delivered, Gestational Hypertension, Rubella Immune - Discharge Information Date of Discharge: 06/24/20 Hospital Course: Patient was admitted at 37 weeks for induction of labor due to gestational hypertension. She received 2 doses of Cytotec and Pitocin. She had a normal vaginal delivery complicated by a mild shoulder dystocia which was mainly due to lack of propulsive effort resolved with Dillon maneuver and suprapubic pressure. Head to body interval was 66 seconds. Early day 1 she developed severe range blood pressures requiring nifedipine and was placed on 24 hours of IV magnesium sulfate for seizure prophylaxis. Her blood pressures remained in the moderate [place] range so she was placed on nifedipine ER 30 mg daily. Discharge Location: Home Disposition: Home self-care Condition: Good Activity on Discharge:: Activity as tolerated, Pelvic Rest Discharge Diet: General/regular food Additional Patient Instructions (free text): Adolfo's follow up appt is on 06/26/20 @ 1:45PM with Dr Aviles. Adolfo's Repeat Hearing Screen is on Tuesday07/01/20 at 1030. [facility] check appt. His Weight Today is 7 pounds 15.9 ounces. His Blood Type is A- His Bilirubin is 5.5 at 31 hours of age. Feed him on demand or at least every 2-3 hours if and every 3-4 hours if bottle feeding. Always place him on his back in his own crib or bassinet for sleep. No pillows, blankets, stuffed animals, or bumper pads in his sleep space with him. Your follow up appt is on Tuesday07/01/20 @ 10:00AM for a BP check. Your visit is on Tuesday07/15/2020 @ 2:15pm with Dr Mtz. Call for headache not relieved by Tylenol and rest, visual disturbances, epigastric pain, increased swelling/weight gain, or generalized not feeling well. Please call with any questions/concerns. [facility] [phone], [facility] [phone], [facility] [phone]. Prescriptions (Any new or edited meds): Ibuprofen [Motrin] 200 - 800 mg PO Q6H PRN #100 tab PRN Reason: Pain NIFEdipine [Nifedipine ER] 30 mg PO DAILY #30 tab.er.24 Transmission Status: Pending to [facility] Complete Home Medications List: Complete Home Medication List: prenat.vits,yue,dbd-obgx-uaukx 1 tab PO DAILY 12/04/19 ferrous sulfate 325 mg (65 mg iron) tablet 325 mg PO DAILY #30 tab 04/23/20 ascorbic acid (vitamin C) 500 mg capsule 500 mg PO DAILY cap 05/05/20 calcium carbonate 500 mg calcium (1,250 mg) chewable tablet 1,000 mg PO DAILY tab 05/05/20 Ibuprofen [Motrin] 200 - 800 mg PO Q6H PRN #100 tab 06/24/20 NIFEdipine [Nifedipine ER] 30 mg PO DAILY #30 tab.er.24 06/24/20 - Plan Discharge to:: Home Follow up in office in:: 1 week - Information Weight (Grams): 3,713 Sex: Male Score 1 min: 9 Score 5 min: 9 Complications: Shoulder Dystocia Other Complications: 66 second head to body
[2020-06-24 12:54] VITALS: BP 132/72
== END 2020-06-24 15:00 | disposition home or self-care (01) | DRG 807 ==
LOC: OB 00:01
PROVIDERS: ADMIT Obstetrics & Gynecology; ATTEND Obstetrics & Gynecology
DX: D50.9 Iron deficiency anemia, unspecified; O13.4 Gestational [pregnancy-induced] hypertension without significant proteinuria, complicating childbirth; Z37.0 Single live birth; O66.9 Obstructed labor, unspecified; Z3A.37 37 weeks gestation of pregnancy; E66.01 Morbid (severe) obesity due to excess calories; O99.824 Streptococcus B carrier state complicating childbirth; O99.02 Anemia complicating childbirth